=== PATIENT | female | born 1940 | race Caucasian/White ===

== ENCOUNTER 2016-07-03 12:18 | Outpatient (RCR) | payer MEDICARE, OTHER ==
[2016-06-18 15:24] LABS: BASOPHILS % (AUTO) 1 % (0-10); EOSINOPHILS # (AUTO) 0.2 10^3/uL (0.0-0.3); EOSINOPHILS % (AUTO) 2 % (0-10); LYMPHOCYTES # (AUTO) 1.7 X 10^3 (1.0-4.0); LYMPHOCYTES % (AUTO) 25 % (12-44); MEAN CORPUSCULAR HEMOGLOBIN 29 PG (25-34); MEAN CORPUSCULAR HGB CONC 32 G/DL (32-36); MEAN CORPUSCULAR VOLUME 89 FL (80-99); MEAN PLATELET VOLUME 8.9 FL (7.4-10.4); MONOCYTES # (AUTO) 0.4 X 10^3 (0.0-1.0); MONOCYTES % (AUTO) 6 % (0-12); NEUTROPHILS # (AUTO) 4.4 X 10^3 (1.8-7.8); NEUTROPHILS % (AUTO) 66 % (42-75); PLATELET COUNT 187 10^3/uL (130-400); RED BLOOD COUNT 4.62 10^6/uL (4.35-5.85); RED CELL DISTRIBUTION WIDTH 14.9 % (10.0-14.5); WHITE BLOOD COUNT 6.6 10^3/uL (4.3-11.0)
[2016-06-18 16:06] LABS: ALANINE AMINOTRANSFERASE 31 U/L (0-55); ALBUMIN 4.1 G/DL (3.2-4.5); ANION GAP 10 MMOL/L (5-14); ASPARTATE AMINO TRANSFERASE 35 U/L (5-34); BILIRUBIN,TOTAL 1.1 MG/DL (0.1-1.0); BLOOD UREA NITROGEN 12 MG/DL (7-18); BUN/CREATININE RATIO 16; CALCIUM 9.8 MG/DL (8.5-10.1); CARBON DIOXIDE 26 MMOL/L (21-32); CHLORIDE 103 MMOL/L (98-107); CREATININE SERUM 0.77 MG/DL (0.60-1.30); GFR ESTIMATED > 60; GLUCOSE 96 MG/DL (70-105); POTASSIUM 4.3 MMOL/L (3.6-5.0); SODIUM 139 MMOL/L (135-145); TOTAL PROTEIN 7.3 G/DL (6.4-8.2)
[~2016-07-03 12:18] MED LIST: ACYC400T21 PO; AMLO5TAB2 PO; ATOR40TA70 PO; CALC-817 PO; DPH25C; FENO145T; MELO-195 PO; MELO7.5T; MTP25TSR; MTP50T PO; MULT1CAP27 PO; QNPR20T; QUIN40TA PO; SERT50TA PO; SOLI5TAB4 PO; SULF1TAB38; TRM50TRX; [UNRECOGNIZED DRUG - OTHER]; lortab; vesicare; zoloft
== END 2016-09-16 | disposition home or self-care (01) ==
LOC: ONC 12:18
PROVIDERS: ATTEND Internal Medicine Hematology & Oncology
DX: C50.112 Malignant neoplasm of central portion of left female breast (principal); Z12.11 Encounter for screening for malignant neoplasm of colon; Z17.0 Estrogen receptor positive status [ER+]; Z79.811 Long term (current) use of aromatase inhibitors
CPT/HCPCS: 36415; 80053; 82274; 85025; 99213

== ENCOUNTER → 2016-12-18 | Outpatient (CLI) | payer MEDICARE, OTHER | LOC: CARD 11:57 | DX: R07.9 Chest pain, unspecified (principal) | CPT/HCPCS: 93306 ==

== ENCOUNTER → 2017-01-03 | Outpatient (CLI) | payer MEDICARE, OTHER ==
--- NOTE | 2017-01-03 16:29 | Diagnostic Imaging Report ---
INDICATION: Productive cough and dyspnea. PA and lateral views of the chest are obtained. Comparison is made to study of 05/19/2013. Overall heart size and pulmonary vascularity are within normal limits. There may be air trapping involving the upper lobes of both lungs. Chronic interstitial prominence in the left midlung is stable. Surgical clips are seen in the left axilla. There is no pneumothorax or evidence of consolidation. No significant pleural fluid is seen. There is diffuse thoracic spondylosis. IMPRESSION: Chronic findings without acute abnormality detected. Dictated by: Dictated on workstation # [id number]
== END ==
LOC: RAD 15:32
PROVIDERS: ATTEND Nurse Practitioner Family
DX: R05 Cough (principal)
CPT/HCPCS: 71020

== ENCOUNTER → 2017-01-14 | Outpatient (CLI) | payer MEDICARE, OTHER ==
[~2017-01-14] MED LIST changes: +RT-ALBUTEROL SULF 2.5 MG/3 ML PRE-MIX VIAL IH ONE
== END ==
LOC: RT 13:24
PROVIDERS: ATTEND Nurse Practitioner Family
DX: R05 Cough (principal); R06.02 Shortness of breath
CPT/HCPCS: 94060; 94640; 94726; 94729

== ENCOUNTER → 2017-01-18 | Outpatient (CLI) | payer MEDICARE, OTHER ==
[~2017-01-18] MED LIST changes: -RT-ALBUTEROL SULF 2.5 MG/3 ML PRE-MIX VIAL IH ONE
--- NOTE | 2017-01-22 13:39 | Diagnostic Imaging Report ---
INDICATION: Screening. The current study was also evaluated with a Computer Aided Detection (CAD) system. Comparison made to prior examination 01/16/2016; 05/02/2015; 08/31/2014; 02/18/2014. FINDINGS: There is moderate amount of residual fibroglandular tissue bilaterally. There is a large area of dystrophic calcification in the upper central left breast which is unchanged. There are a few other benign-type calcifications. There is no new dominant mass, spiculated lesion, or suspicious calcifications identified. There are some vascular calcifications. Skin, nipples, and axilla are unremarkable. IMPRESSION: Category 2 benign. ACR BI-RADS Category 2: Benign findings. Result letter will be mailed to the patient. Note: At least 10% of breast cancer is not imaged by mammography. Dictated by: Dictated on workstation # [id number]
== END ==
LOC: RAD 10:11
PROVIDERS: ATTEND Nurse Practitioner Adult Health
DX: Z12.31 Encounter for screening mammogram for malignant neoplasm of breast (principal); Z85.3 Personal history of malignant neoplasm of breast
CPT/HCPCS: 77067

== ENCOUNTER 2017-06-17 13:29 | Outpatient (RCR) | payer MEDICARE, OTHER ==
[2017-06-17 13:51] LABS: BASOPHILS % (AUTO) 0 % (0-10); EOSINOPHILS # (AUTO) 0.1 10^3/uL (0.0-0.3); EOSINOPHILS % (AUTO) 2 % (0-10); HEMATOCRIT 42 % (35-52); HEMOGLOBIN 13.8 G/DL (11.5-16.0); LYMPHOCYTES # (AUTO) 1.9 X 10^3 (1.0-4.0); LYMPHOCYTES % (AUTO) 27 % (12-44); MEAN CORPUSCULAR HEMOGLOBIN 30 PG (25-34); MEAN CORPUSCULAR HGB CONC 33 G/DL (32-36); MEAN CORPUSCULAR VOLUME 91 FL (80-99); MEAN PLATELET VOLUME 9.3 FL (7.4-10.4); MONOCYTES # (AUTO) 0.4 X 10^3 (0.0-1.0); MONOCYTES % (AUTO) 5 % (0-12); NEUTROPHILS # (AUTO) 4.5 X 10^3 (1.8-7.8); NEUTROPHILS % (AUTO) 66 % (42-75); PLATELET COUNT 145 10^3/uL (130-400); RED BLOOD COUNT 4.54 10^6/uL (4.35-5.85); RED CELL DISTRIBUTION WIDTH 14.3 % (10.0-14.5); WHITE BLOOD COUNT 6.9 10^3/uL (4.3-11.0)
[2017-06-17 14:14] LABS: ALANINE AMINOTRANSFERASE 37 U/L (0-55); ALBUMIN 3.9 GM/DL (3.2-4.5); ALKALINE PHOSPHATASE 96 U/L (40-136); BILIRUBIN,TOTAL 1.3 MG/DL (0.1-1.0); BUN/CREATININE RATIO 22; CARBON DIOXIDE 29 MMOL/L (21-32); CHLORIDE 103 MMOL/L (98-107); CREATININE SERUM 0.72 MG/DL (0.60-1.30); GFR ESTIMATED > 60; GLUCOSE 120 MG/DL (70-105); POTASSIUM 4.5 MMOL/L (3.6-5.0); SODIUM 141 MMOL/L (135-145); TOTAL PROTEIN 7.4 GM/DL (6.4-8.2)
[2017-06-17 15:12] LABS: ERYTHROCYTE SEDIMENTATION RATE 7 MM/HR (0-30)
== END 2017-09-15 | disposition home or self-care (01) ==
LOC: ONC 13:29
PROVIDERS: ATTEND Internal Medicine Hematology & Oncology
DX: Z08 Encounter for follow-up examination after completed treatment for malignant neoplasm (principal); Z85.3 Personal history of malignant neoplasm of breast; M79.1 Myalgia; I10 Essential (primary) hypertension; E78.00 Pure hypercholesterolemia, unspecified; Z79.899 Other long term (current) drug therapy
CPT/HCPCS: 36415; 80053; 85025; 85652; 86141; 99213

== ENCOUNTER → 2017-11-25 | Outpatient (CLI) | payer MEDICARE, OTHER ==
--- NOTE | 2017-11-25 16:08 | Diagnostic Imaging Report ---
INDICATION: Pneumonia. COMPARISON: 01/03/2017. FINDINGS: Two views of the chest are obtained. Heart size is normal. The pulmonary vessels appear unremarkable. There is no pneumothorax, mediastinal widening, or pleural fluid. Some calcific scarring in the left mid lung is unchanged. The lungs are otherwise clear. There are degenerative changes in the spine. IMPRESSION: No radiographic evidence of an acute cardiopulmonary abnormality. No interval change from the prior study. Dictated by: Dictated on workstation # [id number]
== END ==
LOC: RAD 14:50
PROVIDERS: ATTEND Nurse Practitioner Family
DX: J18.9 Pneumonia, unspecified organism (principal)
CPT/HCPCS: 71046

== ENCOUNTER → 2018-01-27 | Outpatient (CLI) | payer MEDICARE, OTHER ==
--- NOTE | 2018-01-27 18:15 | Diagnostic Imaging Report ---
Indication: Breast carcinoma. Patient reports her physician feeling some thickening in the left breast. Patient denies any symptoms. Comparison is made with prior exam from 01/18/2017 and 01/16/2016. 2D and 3D bilateral diagnostic mammography was performed with CAD. FINDINGS: Scattered fibroglandular densities are identified bilaterally. Lumpectomy changes in the upper left breast are again noted. Large calcified mass in the upper left breast appears stable. No new mass is seen. No malignant appearing microcalcifications are identified. The axillae are unremarkable. IMPRESSION: BI-RADS category 2. Stable bilateral mammograms. No mammographic features suspicious for malignancy are identified. ACR BI-RADS Category 2: Benign findings. Result letter will be mailed to the patient. Note: At least 10% of breast cancer is not imaged by mammography. Dictated by: Dictated on workstation # [id number]
== END ==
LOC: RAD 10:25
PROVIDERS: ATTEND Nurse Practitioner Adult Health
DX: C50.112 Malignant neoplasm of central portion of left female breast (principal); N64.59 Other signs and symptoms in breast
CPT/HCPCS: 77066

== ENCOUNTER → 2018-07-15 | Outpatient (CLI) | payer MEDICARE, OTHER ==
[2018-07-15 14:38] LABS: BASOPHILS % (AUTO) 0 % (0-10); EOSINOPHILS # (AUTO) 0.2 10^3/uL (0.0-0.3); EOSINOPHILS % (AUTO) 3 % (0-10); HEMATOCRIT 41 % (35-52); HEMOGLOBIN 13.8 G/DL (11.5-16.0); LYMPHOCYTES # (AUTO) 1.4 X 10^3 (1.0-4.0); LYMPHOCYTES % (AUTO) 25 % (12-44); MEAN CORPUSCULAR HEMOGLOBIN 31 PG (25-34); MEAN CORPUSCULAR HGB CONC 33 G/DL (32-36); MEAN CORPUSCULAR VOLUME 93 FL (80-99); MEAN PLATELET VOLUME 9.3 FL (7.4-10.4); MONOCYTES # (AUTO) 0.3 X 10^3 (0.0-1.0); MONOCYTES % (AUTO) 6 % (0-12); NEUTROPHILS # (AUTO) 3.7 X 10^3 (1.8-7.8); NEUTROPHILS % (AUTO) 66 % (42-75); PLATELET COUNT 146 10^3/uL (130-400); RED CELL DISTRIBUTION WIDTH 14.8 % (10.0-14.5); WHITE BLOOD COUNT 5.7 10^3/uL (4.3-11.0)
[2018-07-15 14:59] LABS: BUN/CREATININE RATIO 18; CALCIUM 9.8 MG/DL (8.5-10.1); CARBON DIOXIDE 25 MMOL/L (21-32); CHLORIDE 104 MMOL/L (98-107); GFR ESTIMATED > 60; GLUCOSE 137 MG/DL (70-105); POTASSIUM 4.2 MMOL/L (3.6-5.0); SODIUM 138 MMOL/L (135-145)
[2018-07-15 15:00] LABS: ALANINE AMINOTRANSFERASE 35 U/L (0-55); ALBUMIN 4.2 GM/DL (3.2-4.5); ALKALINE PHOSPHATASE 103 U/L (40-136); BILIRUBIN,TOTAL 1.5 MG/DL (0.1-1.0); TOTAL PROTEIN 7.3 GM/DL (6.4-8.2)
== END ==
LOC: EDSTATUS 09-16 13:18 → ONC 14:21
PROVIDERS: ATTEND Internal Medicine Hematology & Oncology
DX: Z08 Encounter for follow-up examination after completed treatment for malignant neoplasm (principal); Z85.3 Personal history of malignant neoplasm of breast; I10 Essential (primary) hypertension; E78.00 Pure hypercholesterolemia, unspecified; M79.10 Myalgia, unspecified site; Z79.899 Other long term (current) drug therapy
CPT/HCPCS: 36415; 80053; 83735; 85025; 99213

== ENCOUNTER → 2018-11-14 | Outpatient (CLI) | payer MEDICARE, OTHER ==
[~2018-11-14] MED LIST changes: +GADOBUTROL 10 MMOL/10 ML (GADAVIST) VIAL IV ONE
--- NOTE | 2018-11-14 15:58 | Diagnostic Imaging Report ---
MRI brain with and without contrast Technique: Multiplanar, multisequence MRI of the brain was performed with and without contrast. Indication: Memory loss. Comparison: None available. Findings: The diffusion series demonstrates no restriction to suggest acute ischemia. There is no MR evidence of acute intracranial hemorrhage. There is no evidence of intracranial mass effect or shift. Age-appropriate global cerebral volume loss is demonstrated. There are mild background chronic microvascular ischemic changes demonstrated within the subcortical and periventricular white matter. Rios and white matter signal characteristics are otherwise unremarkable. There is no abnormal extra-axial fluid collection. The ventricles are appropriate in size and configuration. The basilar cisterns are patent. Pituitary gland and pineal region appear normal. There is normal alignment of the craniocervical junction. No acute posterior fossa abnormality is demonstrated. There is no evidence of pathologic intracranial enhancement. The mastoids are clear. The paranasal sinuses are clear. The orbital contents are unremarkable. Expected arterial and dural venous sinus flow voids appear preserved. Impression: 1. No MR evidence of an acute intracranial abnormality. There is no evidence of acute ischemia, hemorrhage, intracranial mass effect, hydrocephalus, or pathologic intracranial enhancement. 2. Age-appropriate global cerebral volume loss. Mild background chronic microvascular ischemic changes are demonstrated throughout the white matter. Dictated by: Dictated on workstation # [id number]
== END ==
LOC: RAD 14:43
PROVIDERS: ATTEND Nurse Practitioner Family
DX: I67.82 Cerebral ischemia (principal); R41.3 Other amnesia
CPT/HCPCS: 70553

== ENCOUNTER 2019-05-05 07:12 | Emergency (ER) | payer MEDICARE, OTHER ==
[~2019-05-05] VITALS: Ht 164.4 cm; Wt 104.0 kg
[~2019-05-05 07:12] MED LIST changes: -GADOBUTROL 10 MMOL/10 ML (GADAVIST) VIAL IV ONE
[2019-05-05] MEDS ORDERED: LACTATED RINGERS 1,000 ML IV ONE ×2 (07:20→08:20)
[2019-05-05] MEDS ORDERED: ONDANSETRON 4 MG/2 ML (SDV) Z0FRAN IVP ONE (07:30)
[2019-05-05] MEDS ORDERED: DIPHENOXYLATE/ATROPINE 2.5MG/0.025MG (LOMOTIL) TAB PO ONE (07:30)
[2019-05-05 07:39] LABS: BASOPHILS % (AUTO) 0 % (0-10); EOSINOPHILS # (AUTO) 0.1 10^3/uL (0.0-0.3); EOSINOPHILS % (AUTO) 1 % (0-10); HEMATOCRIT 44 % (35-52); HEMOGLOBIN 14.4 G/DL (11.5-16.0); LYMPHOCYTES # (AUTO) 0.3 X 10^3 (1.0-4.0); LYMPHOCYTES % (AUTO) 5 % (12-44); MEAN CORPUSCULAR HEMOGLOBIN 29 PG (25-34); MEAN CORPUSCULAR HGB CONC 33 G/DL (32-36); MEAN CORPUSCULAR VOLUME 89 FL (80-99); MEAN PLATELET VOLUME 9.8 FL (7.4-10.4); MONOCYTES # (AUTO) 0.3 X 10^3 (0.0-1.0); MONOCYTES % (AUTO) 5 % (0-12); NEUTROPHILS # (AUTO) 5.8 X 10^3 (1.8-7.8); NEUTROPHILS % (AUTO) 89 % (42-75); PLATELET COUNT 121 10^3/uL (130-400); WHITE BLOOD COUNT 6.5 10^3/uL (4.3-11.0)
[2019-05-05 07:54] LABS: ALANINE AMINOTRANSFERASE 21 U/L (0-55); ALBUMIN 4.2 GM/DL (3.2-4.5); ALKALINE PHOSPHATASE 118 U/L (40-136); BILIRUBIN,TOTAL 1.7 MG/DL (0.1-1.0); BUN/CREATININE RATIO 14; CALCIUM 9.5 MG/DL (8.5-10.1); CARBON DIOXIDE 17 MMOL/L (21-32); CHLORIDE 106 MMOL/L (98-107); CREATINE KINASE 31 U/L (29-168); CREATININE SERUM 0.76 MG/DL (0.60-1.30); GFR ESTIMATED > 60; GLUCOSE 153 MG/DL (70-105); MAGNESIUM 1.7 MG/DL (1.6-2.4); POTASSIUM 4.3 MMOL/L (3.6-5.0); SODIUM 136 MMOL/L (135-145); TOTAL PROTEIN 7.4 GM/DL (6.4-8.2)
[2019-05-05 07:59] LABS: BAND NEUTROPHILS 17 %; BASOPHILS % (MANUAL) 0 %; EOSINOPHILS % (MANUAL) 0 %; LYMPHOCYTES % (MANUAL) 5 %; MONOCYTES % (MANUAL) 3 %; NEUTROPHILS % (MANUAL) 75 %; RBC MORPH NORMAL
[2019-05-05 08:01] LABS: BILIRUBIN,URINE NEGATIVE (NEGATIVE); CLARITY,URINE CLEAR; COLOR,URINE YELLOW; GLUCOSE, URINE (UA) NEGATIVE (NEGATIVE); KETONES,URINE NEGATIVE (NEGATIVE); LEUKOCYTE ESTERASE ,URINE TRACE (NEGATIVE); NITRITE,URINE NEGATIVE (NEGATIVE); PH,URINE 5.5 (5-9); PROTEIN,URINE TRACE (NEGATIVE)
[2019-05-05 08:10] LABS: BACTERIA,URINE FEW /HPF; RBC,URINE RARE /HPF
[2019-05-05 08:15] LABS: FREE T4 (FREE THYROXINE) 0.94 NG/DL (0.70-1.48)
[2019-05-05] MEDS ORDERED: KETOROLAC 30 MG/ML VIAL IVP ONE (08:30)
[2019-05-05] MEDS ORDERED: ONDA4TAB11 SL (09:40)
--- NOTE | 2019-05-05 09:43 | ED GI ---
General Chief Complaint: Abdominal/GI Problems Stated Complaint: D/N FEVER Nursing Triage Note: TO ED PER EMS FROM HOME WITH ONSET OF DIARRHEA LAST NIGHT AND BODY ACHES Sepsis Screen: No Definite Risk Source of Information: Patient Exam Limitations: No Limitations History of Present Illness Date Seen by Provider: May 05, 2019 Time Seen by Provider: 07:15 Initial Comments This 79-year-old woman presents to the emergency room with complaints of fever, diarrhea, and generalized body aches since last night. Pain is rated as 7/10. She had Advil last night. He had vomiting last night but none today. She is afebrile at present. Dr. Gordon is her primary care provider. Allergies and Home Medications Allergies Coded Allergies: Cortisone (Verified Allergy, Unknown, 01/10/07) Gramicidin D (Verified Allergy, Unknown, NEOSPORIN MAKES HER CHEEK SWELL, 01/13/07) Neomycin (Verified Allergy, Unknown, NEOSPORIN MAKES HER CHEEK SWELL, 01/13/07) Penicillins (Verified Allergy, Unknown, rash, 01/10/07) bacitracin (Verified Allergy, Unknown, NEOSPORIN MAKES HER CHEEK SWELL, 01/13/07) polymyxin B (Verified Allergy, Unknown, NEOSPORIN MAKES HER CHEEK SWELL, 01/13/07) Home Medications Acyclovir 400 Mg Tablet, 400 MG PO DAILY, (Reported) Amlodipine Besylate 5 Mg Tablet, 5 MG PO DAILY, (Reported) Atorvastatin Calcium 40 Mg Tablet, 40 MG PO DAILY, (Reported) Calcium Carb & Cit/Vitamin D3 1 Each Tablet.er, 1 EACH PO DAILY, (Reported) Meloxicam 15 Mg Tablet, 15 MG PO DAILY, (Reported) Metoprolol Tartrate 50 Mg Tablet, 1 EACH PO BID, (Reported) Multivitamins 1 Each Capsule, 1 EACH PO DAILY, (Reported) Ondansetron 4 Mg Tab.rapdis, 4 MG SL Q4H Prescribed by: MARQUEZ HARTLEY on 05/05/19 0940 Quinapril Hcl 40 Mg Tablet, 40 MG PO DAILY, (Reported) Sertraline Hcl 50 Mg Tablet, 50 MG PO DAILY, (Reported) Solifenacin Succinate 5 Mg Tablet, 5 MG PO DAILY, (Reported) Patient Home Medication List Home Medication List Reviewed: Yes Review of Systems Review of Systems Constitutional: see HPI EENTM: No Symptoms Reported Respiratory: No Symptoms Reported Cardiovascular: No Symptoms Reported Gastrointestinal: See HPI Genitourinary: No Symptoms Reported Musculoskeletal: see HPI Skin: no symptoms reported Psychiatric/Neurological: No Symptoms Reported Endocrine: No Symptoms Reported Hematologic/Lymphatic: No Symptoms Reported Past [id number]-Cfxjfr-Thcisw Hx Past Med/Social Hx: Reviewed and Corrections made Patient Social History Alcohol Use: Denies Use Recreational Drug Use: No Smoking Status: Never a Smoker Recent Foreign Travel: No Contact w/Someone Who Travel: No Recent Infectious Disease Expo: No Recent Hopitalizations: Yes (HAD AZYCUS VEIN REMOVED DUE TO ANEURYSM) Immunizations Up To Date Date of Pneumonia Vaccine: Feb 17, 2007 Past Medical History Surgeries: Yes (APPY, AZYCUS VEIN, CARPAL TUNNEL, LUMPECTOMY) Orthopedic Respiratory: No Cardiac: Yes (HAS HTN) Hypertension Neurological: Yes Dementia, Neuropathy Reproductive Disorders: No Genitourinary: Yes (Incontinence) Gastrointestinal: No Musculoskeletal: No Endocrine: Yes Hypothyroidsim Cancer: No Psychosocial: No Blood Disorders: No Physical Exam Vital Signs Vital Signs - First Documented 05/05/19 07:12 Temp 37.2 Pulse 74 Resp 18 B/P (MAP) 159/74 (102) Pulse Ox 95 Capillary Refill : Less Than 3 Seconds Height/Weight/BMI Height: 10'6.00" Weight: 249lbs. 0.0oz. 112.107111oc; 38.00 BMI Method: General Appearance: WD/WN, no apparent distress HEENT: normal ENT inspection, pharynx normal (Oropharynx) Neck: normal inspection Respiratory: lungs clear, normal breath sounds, no respiratory distress, no a ccessory muscle use Cardiovascular: regular rate, rhythm, no edema, no murmur Gastrointestinal: normal bowel sounds, non tender, soft Extremities: normal inspection, no pedal edema Neurologic/Psychiatric: personal security specialist II-XII nml as tested, no motor/sensory deficits, alert, normal mood/affect, oriented x 3 Skin: normal color, warm/dry Progress/Results/Core Measures Results/Orders Lab Results Laboratory Tests Test 05/05/19 07:26 05/05/19 07:52 Range/Units White Blood Count 6.5 4.3-11.0 10^3/uL Red Blood Count 4.90 4.35-5.85 10^6/uL Hemoglobin 14.4 11.5-16.0 G/DL Hematocrit 44 35-52 % Mean Corpuscular Volume 89 80-99 FL Mean Corpuscular Hemoglobin 29 25-34 PG Mean Corpuscular Hemoglobin Concent 33 32-36 G/DL Red Cell Distribution Width 15.0 H 10.0-14.5 % Platelet Count 121 L 130-400 10^3/uL Mean Platelet Volume 9.8 7.4-10.4 FL Neutrophils (%) (Auto) 89 H 42-75 % Lymphocytes (%) (Auto) 5 L 12-44 % Monocytes (%) (Auto) 5 0-12 % Eosinophils (%) (Auto) 1 0-10 % Basophils (%) (Auto) 0 0-10 % Neutrophils # (Auto) 5.8 1.8-7.8 X 10^3 Lymphocytes # (Auto) 0.3 L 1.0-4.0 X 10^3 Monocytes # (Auto) 0.3 0.0-1.0 X 10^3 Eosinophils # (Auto) 0.1 0.0-0.3 10^3/uL Basophils # (Auto) 0.0 0.0-0.1 10^3/uL Neutrophils % (Manual) 75 % Lymphocytes % (Manual) 5 % Monocytes % (Manual) 3 % Eosinophils % (Manual) 0 % Basophils % (Manual) 0 % Band Neutrophils 17 % Blood Morphology Comment NORMAL Sodium Level 136 135-145 MMOL/L Potassium Level 4.3 3.6-5.0 MMOL/L Chloride Level 106 98-107 MMOL/L Carbon Dioxide Level 17 L 21-32 MMOL/L Anion Gap 13 5-14 MMOL/L Blood Urea Nitrogen 11 7-18 MG/DL Creatinine 0.76 0.60-1.30 MG/DL Estimat Glomerular Filtration Rate > 60 BUN/Creatinine Ratio 14 Glucose Level 153 H 70-105 MG/DL Calcium Level 9.5 8.5-10.1 MG/DL Corrected Calcium 9.3 8.5-10.1 MG/DL Magnesium Level 1.7 1.6-2.4 MG/DL Total Bilirubin 1.7 H 0.1-1.0 MG/DL Aspartate Amino Transf (AST/SGOT) 21 5-34 U/L Alanine Aminotransferase (ALT/SGPT) 21 0-55 U/L Alkaline Phosphatase 118 40-136 U/L Total Creatine Kinase 31 29-168 U/L Total Protein 7.4 6.4-8.2 GM/DL Albumin 4.2 3.2-4.5 GM/DL Thyroid Stimulating Hormone (TSH) 1.24 0.35-4.94 UIU/ML Free Thyroxine 0.94 0.70-1.48 NG/DL Urine Color YELLOW Urine Clarity CLEAR Urine pH 5.5 5-9 Urine Specific [place] >=1.030 1.016-1.022 Urine Protein TRACE NEGATIVE Urine Glucose (UA) NEGATIVE NEGATIVE Urine Ketones NEGATIVE NEGATIVE Urine Nitrite NEGATIVE NEGATIVE Urine Bilirubin NEGATIVE NEGATIVE Urine Urobilinogen 0.2 < = 1.0 MG/DL Urine Leukocyte Esterase TRACE NEGATIVE Urine RBC (Auto) TRACE-I NEGATIVE Urine RBC RARE /HPF Urine WBC 5-10 H /HPF Urine Squamous Epithelial Cells 5-10 /HPF Urine Crystals NONE /LPF Urine Bacteria FEW H /HPF Urine Casts NONE /LPF Urine Mucus SMALL H /LPF Urine Culture Indicated YES Micro Results Microbiology 05/05/19 Urine Culture - Final, Complete 3 or more isolates My Orders Orders - MARQUEZ MCCARTHY MD Cbc With Automated Diff (05/05/19 07:20) Comprehensive Metabolic Panel (05/05/19 07:20) Creatine Kinase (05/05/19 07:20) Magnesium (05/05/19 07:20) Thyroid Stimulating Hormone (05/05/19 07:20) Ua Culture If Indicated (05/05/19 07:20) Ed Iv/Invasive Line Start (05/05/19 07:20) Lactated Ringers (Lr 1000 Ml Iv Solution (05/05/19 07:20) Ondansetron Injection (Zofran Injectio (05/05/19 07:30) Diphenoxylate/Atropine Tablet (Lomotil T (05/05/19 07:30) Free T4 (Free Thyroxine) (05/05/19 07:20) Manual Differential (05/05/19 07:26) Urine Culture (05/05/19 07:52) Ketorolac Injection (Toradol Injection) (05/05/19 08:30) Lactated Ringers (Lr 1000 Ml Iv Solution (05/05/19 08:20) Medications Given in ED Vital Signs/I&O 12/17/19 12/17/19 07:12 10:02 Temp 37.2 Pulse 74 71 Resp 18 18 B/P (MAP) 159/74 (102) 135/84 Pulse Ox 95 95 Blood Pressure Mean: 102 Progress Progress Note : Progress Note Labs were unremarkable. Patient received a liter of LR and Toradol 15 mg IV. She felt markedly improved. She did have 2 episodes of diarrhea while in the emergency room. After these therapies patient was requesting discharge home. Zofran was prescribed and she was dismissed. There were subtle findings in her urinalysis including a small amount of WBC and bacteria. These are likely to be contaminants given the diarrhea and the presence of squamous cells in the sample. Culture is being performed. Departure Impression Primary Impression: Nausea vomiting and diarrhea Additional Impression: Myalgia Disposition: 01 HOME, SELF-CARE Condition: Improved Departure-Patient Inst. Decision time for Depature: 09:20 Referrals: MADDY GORDON MD (PCP/Family) Primary Care Physician Patient Instructions: Diarrhea in Adolescents and Adults, Nausea and Vomiting, Adult (DC) Add. Discharge Instructions: Drink plenty of clear liquids. Stick to a clear liquid diet until this evening. Then you may gradually advance your diet with small quantities of bland food such as crackers, white rice, bananas, etc. Use Zofran (ondansetron) as prescribed for nausea and vomiting. Avoid milk products or fatty or greasy foods for at least 48 hours after symptoms have completely resolved. You may use Tylenol (acetaminophen) up to 1000 mg every 6 hours as needed for pain or fever. Add ibuprofen up to 400 mg every 6 hours as needed for additional pain or fever relief. You may use Imodium sparingly for treatment of diarrhea. Return to the emergency room if you have any significant problems or concerns. All discharge instructions reviewed with patient and/or family. Voiced understanding. Scripts Ondansetron (Ondansetron Odt) 4 Mg Tab.rapdis 4 MG SL Q4H, #10 TAB Prov: MARQUEZ MCCARTHY MD 05/05/19 Copy Copies To 1: MADDY GORDON MD, JOSHUA T MD May 05, 2019 09:43
--- NOTE | 2019-05-05 09:46 | NUR ---
PATIENT FEELING MUCH BETTER READY TO GO HOME DECLINED 2ND LITER.
[2019-05-05 10:02] VITALS: BP 135/84
== END 2019-05-05 10:01 | disposition home or self-care (01) ==
LOC: EDUNIT# 07:12 → ER 07:15
DX: R19.7 Diarrhea, unspecified (principal); R11.2 Nausea with vomiting, unspecified; M79.18 Myalgia, other site; I10 Essential (primary) hypertension; F03.90 Unspecified dementia, unspecified severity, without behavioral disturbance, psychotic disturbance, mood disturbance, and anxiety; G62.9 Polyneuropathy, unspecified; E03.9 Hypothyroidism, unspecified; Z90.49 Acquired absence of other specified parts of digestive tract; Z88.0 Allergy status to penicillin; Z88.1 Allergy status to other antibiotic agents; Z88.8 Allergy status to other drugs, medicaments and biological substances
CPT/HCPCS: 36415; 80053; 81000; 82550; 83735; 84439; 84443; 85007; 85027; 87088

== ENCOUNTER → 2019-06-19 | Outpatient (CLI) | payer MEDICARE, OTHER ==
[~2019-06-19] MED LIST changes: +ONDA4TAB11 SL
--- NOTE | 2019-06-19 16:17 | Diagnostic Imaging Report ---
INDICATION: Left breast carcinoma. COMPARISON: Correlation is made with prior mammograms from 01/27/2018 and 01/18/2017. TECHNIQUE: 2-D and 3-D bilateral diagnostic mammography was performed. The current study was also evaluated with a Computer Aided Detection (CAD) system. 3-D tomosynthesis was also performed and reviewed. FINDINGS: Scattered fibroglandular densities are identified bilaterally. There are post-lumpectomy changes in the upper left breast. A large calcified mass at the lumpectomy site is stable. No new mass or malignant-appearing microcalcifications are seen. There are surgical clips in the left axilla. IMPRESSION: No mammographic features suspicious for malignancy are identified. ACR BI-RADS Category 2: Benign findings. Result letter will be mailed to the patient. Note: At least 10% of breast cancer is not imaged by mammography. Dictated by: Dictated on workstation # [id number]
== END ==
LOC: RAD 14:03
PROVIDERS: ATTEND Nurse Practitioner Adult Health
DX: N63.20 Unspecified lump in the left breast, unspecified quadrant (principal); C50.112 Malignant neoplasm of central portion of left female breast
CPT/HCPCS: 77066

== ENCOUNTER → 2019-07-14 | Outpatient (CLI) | payer MEDICARE, OTHER ==
[2019-07-14 13:36] LABS: BASOPHILS % (AUTO) 0 % (0-10); EOSINOPHILS # (AUTO) 0.2 10^3/uL (0.0-0.3); EOSINOPHILS % (AUTO) 3 % (0-10); HEMATOCRIT 44 % (35-52); HEMOGLOBIN 14.1 G/DL (11.5-16.0); LYMPHOCYTES # (AUTO) 1.5 X 10^3 (1.0-4.0); LYMPHOCYTES % (AUTO) 25 % (12-44); MEAN CORPUSCULAR HEMOGLOBIN 29 PG (25-34); MEAN CORPUSCULAR HGB CONC 32 G/DL (32-36); MEAN CORPUSCULAR VOLUME 91 FL (80-99); MEAN PLATELET VOLUME 9.2 FL (7.4-10.4); MONOCYTES # (AUTO) 0.3 X 10^3 (0.0-1.0); MONOCYTES % (AUTO) 5 % (0-12); NEUTROPHILS % (AUTO) 67 % (42-75); PLATELET COUNT 136 10^3/uL (130-400); RED CELL DISTRIBUTION WIDTH 15.4 % (10.0-14.5)
[2019-07-14 13:55] LABS: ALANINE AMINOTRANSFERASE 25 U/L (0-55); ALBUMIN 4.1 GM/DL (3.2-4.5); ALKALINE PHOSPHATASE 117 U/L (40-136); BUN/CREATININE RATIO 16; CALCIUM 9.7 MG/DL (8.5-10.1); CARBON DIOXIDE 25 MMOL/L (21-32); CHLORIDE 105 MMOL/L (98-107); CREATININE SERUM 0.73 MG/DL (0.60-1.30); GFR ESTIMATED > 60; GLUCOSE 106 MG/DL (70-105); POTASSIUM 4.4 MMOL/L (3.6-5.0); SODIUM 139 MMOL/L (135-145); TOTAL PROTEIN 7.4 GM/DL (6.4-8.2)
== END ==
LOC: ONC 13:27
PROVIDERS: ATTEND Internal Medicine Hematology & Oncology
DX: N64.59 Other signs and symptoms in breast (principal); R19.7 Diarrhea, unspecified; R92.1 Mammographic calcification found on diagnostic imaging of breast; Z85.3 Personal history of malignant neoplasm of breast
CPT/HCPCS: 80053; 85025; 99213

== ENCOUNTER → 2020-06-20 | Outpatient (CLI) | payer MEDICARE, OTHER ==
--- NOTE | 2020-06-20 13:21 | Diagnostic Imaging Report ---
INDICATION: Left breast cancer, followup. COMPARISON: Correlation is made with the prior mammograms of 06/19/2019 and 01/27/2018. TECHNIQUE: 2D and 3D bilateral diagnostic mammography was performed with CAD. FINDINGS: Scattered fibroglandular densities are identified bilaterally. There are post-therapeutic changes in the left breast. There are surgical clips in the left axilla. A large calcified mass in the upper central left breast is stable. No spiculated mass or malignant-appearing microcalcifications are seen. The right axilla is unremarkable. IMPRESSION: Stable bilateral mammograms with no mammographic features suspicious for malignancy. ACR BI-RADS Category 2: Benign findings. Result letter will be mailed to the patient. Note: At least 10% of breast cancer is not imaged by mammography. Dictated by: Dictated on workstation # [id number]
== END ==
LOC: RAD 12:48
PROVIDERS: ATTEND Nurse Practitioner Adult Health
DX: R92.1 Mammographic calcification found on diagnostic imaging of breast (principal); Z85.3 Personal history of malignant neoplasm of breast
CPT/HCPCS: 77066; G0279; 77062

== ENCOUNTER → 2020-07-25 | Outpatient (CLI) | payer MEDICARE, OTHER ==
[2020-07-25 11:19] LABS: BASOPHILS % (AUTO) 0 % (0-10); EOSINOPHILS # (AUTO) 0.3 10^3/uL (0.0-0.3); EOSINOPHILS % (AUTO) 3 % (0-10); HEMATOCRIT 40 % (35-52); HEMOGLOBIN 12.5 g/dL (11.5-16.0); LYMPHOCYTES # (AUTO) 1.1 10^3/uL (1.0-4.0); LYMPHOCYTES % (AUTO) 11 % (12-44); MEAN CORPUSCULAR HEMOGLOBIN 30 pg (25-34); MEAN CORPUSCULAR HGB CONC 31 g/dL (32-36); MEAN CORPUSCULAR VOLUME 96 fL (80-99); MEAN PLATELET VOLUME 9.1 fL (9.0-12.2); MONOCYTES # (AUTO) 0.4 10^3/uL (0.0-1.0); MONOCYTES % (AUTO) 4 % (0-12); NEUTROPHILS # (AUTO) 8.1 10^3/uL (1.8-7.8); NEUTROPHILS % (AUTO) 82 % (42-75); PLATELET COUNT 268 10^3/uL (130-400)
[2020-07-25 11:45] LABS: ALANINE AMINOTRANSFERASE 25 U/L (0-55); ALBUMIN 3.4 GM/DL (3.2-4.5); ALKALINE PHOSPHATASE 102 U/L (40-136); BILIRUBIN,TOTAL 0.6 MG/DL (0.1-1.0); BUN/CREATININE RATIO 11; CALCIUM 9.5 MG/DL (8.5-10.1); CARBON DIOXIDE 26 MMOL/L (21-32); CHLORIDE 106 MMOL/L (98-107); CREATININE SERUM 0.83 MG/DL (0.60-1.30); GFR ESTIMATED > 60; GLUCOSE 120 MG/DL (70-105); POTASSIUM 4.4 MMOL/L (3.6-5.0); SODIUM 140 MMOL/L (135-145); TOTAL PROTEIN 7.5 GM/DL (6.4-8.2)
== END ==
LOC: ONC 10:43
PROVIDERS: ATTEND Internal Medicine Hematology & Oncology
DX: C50.112 Malignant neoplasm of central portion of left female breast (principal); F03.90 Unspecified dementia, unspecified severity, without behavioral disturbance, psychotic disturbance, mood disturbance, and anxiety; I10 Essential (primary) hypertension; I25.10 Atherosclerotic heart disease of native coronary artery without angina pectoris; E78.00 Pure hypercholesterolemia, unspecified; R19.7 Diarrhea, unspecified; Z79.811 Long term (current) use of aromatase inhibitors; Z98.890 Other specified postprocedural states; Z90.12 Acquired absence of left breast and nipple; Z92.3 Personal history of irradiation
CPT/HCPCS: 80053; 85025; G0463; 99213

== ENCOUNTER 2021-03-09 09:56 | Outpatient (CLI) | payer MEDICARE, OTHER ==
[~2021-03-09] VITALS: Ht 167.7 cm; Wt 104.0 kg
[2021-03-09] MEDS ORDERED: ACETAMINOPHEN 500 MG TAB (TYLENOL) PO PRN (10:00)
[2021-03-09] MEDS ORDERED: diphenhydrAMINE 50 MG/ML INJ (BENADRYL) IV PRN (10:00)
[2021-03-09] MEDS ORDERED: CASIRIVIMAB/IMDEVIMAB 1,200 MG in NS (IVPB) 250 ML IV ONE (10:00)
[2021-03-09] MEDS ORDERED: ONDANSETRON 4 MG/2 ML (SDV) Z0FRAN IV PRN (10:00)
[2021-03-09] MEDS ORDERED: EPINEPHrine INJECTION 1 MG/ML AMP IM PRN (10:00)
[2021-03-09 10:08] VITALS: BP 131/52
[2021-03-09 11:16] VITALS: BP 114/54
== END 2021-03-09 11:30 | disposition home or self-care (01) ==
LOC: INFUSION 09:56
PROVIDERS: ATTEND Nurse Practitioner Family
DX: U07.1 COVID-19 (principal)

== ENCOUNTER 2021-04-03 07:38 | Outpatient (RCR) | payer MEDICARE, OTHER ==
[2021-03-27] MEDS: MEROPENEM 500 MG/SWFI 10 ML IV PUSH IV SCH ×4 (14:10→22:08)
[2021-03-27 14:21] VITALS: BP 110/58
[2021-03-27 22:06] VITALS: BP 123/55
[2021-03-28] MEDS: MEROPENEM 500 MG/SWFI 10 ML IV PUSH IV SCH ×6 (07:14→22:10)
[2021-03-28 07:30] VITALS: BP 113/67
[2021-03-28 15:28] VITALS: BP 113/67
[2021-03-28 22:20] VITALS: BP 110/60
[2021-03-29] MEDS: MEROPENEM 500 MG/SWFI 10 ML IV PUSH IV SCH ×2 (06:59)
[2021-03-29 07:05] VITALS: BP 0/0
[2021-03-29] MEDS: MEROPENEM 500 MG/NS 100 ML IVPB IV SCH ×4 (14:39→22:44)
[2021-03-29 14:50] VITALS: BP 102/51
[2021-03-29 22:49] VITALS: BP 110/56
[2021-03-30] MEDS: MEROPENEM 500 MG/NS 100 ML IVPB IV SCH ×6 (07:01→22:17)
[2021-03-30 07:20] VITALS: BP 113/55
[2021-03-30 14:59] VITALS: BP 113/55
[2021-03-30 22:44] VITALS: BP 116/88
[2021-03-31 07:00] VITALS: BP 147/58
[2021-03-31] MEDS: MEROPENEM 500 MG/NS 100 ML IVPB IV SCH ×6 (07:23→22:10)
[2021-03-31 14:35] VITALS: BP 147/58
[2021-03-31 22:10] VITALS: BP 141/61
[2021-04-01 07:30] VITALS: BP 131/70
[2021-04-01] MEDS: MEROPENEM 500 MG/NS 100 ML IVPB IV SCH ×6 (07:51→22:30)
[2021-04-01 14:50] VITALS: BP 126/61
[2021-04-01 22:25] VITALS: BP 167/67
[2021-04-02] MEDS: MEROPENEM 500 MG/NS 100 ML IVPB IV SCH ×6 (07:25→22:14)
[2021-04-02 07:45] VITALS: BP 122/75
[2021-04-02 15:12] VITALS: BP 127/61
[2021-04-02 22:17] VITALS: BP 162/70
[~2021-04-03] VITALS: Ht 167 cm; Wt 89.5 kg
[2021-04-03] MEDS: MEROPENEM 500 MG/NS 100 ML IVPB IV SCH ×2 (07:49)
[2021-04-03 08:05] VITALS: BP 143/65
== END 2021-04-03 08:05 | disposition home or self-care (01) ==
LOC: SDC 07:38
PROVIDERS: ATTEND Nurse Practitioner Family
DX: N39.0 Urinary tract infection, site not specified (principal)
CPT/HCPCS: 36410; 76937; 96365; 96374; C1751

== ENCOUNTER 2021-04-18 05:42 | Outpatient (CLI) | payer MEDICARE, OTHER ==
[~2021-04-18] VITALS: Ht 167.7 cm; Wt 89.4 kg
[2021-04-18] MEDS ORDERED: DONE5TAB30 PO (11:06)
== END 2021-04-18 11:29 | disposition home or self-care (01) ==
LOC: PREOP 05:42
PROVIDERS: ATTEND Internal Medicine
DX: Z01.818 Encounter for other preprocedural examination (principal)

== ENCOUNTER 2021-04-28 07:18 | Day surgery (SDC) | payer MEDICARE, OTHER ==
--- NOTE | 2021-04-19 06:47 | HISTORY AND PHYSICAL ---
DATE OF SERVICE: COLONOSCOPY HISTORY AND PHYSICAL HISTORY: The patient is a 80-year-old white female referred by Dr. Gordon for diagnostic colonoscopy. She reports at least a several year history what she reports is constipation, but describes that she has to keep her stool very soft. It is not typically hard, but she has to strain. She has noted change in stool caliber with this being much more narrow over the last six months. She denies bright red blood per rectum. She had one other colonoscopy done in [address] Prieto. Report was reviewed. She had no evidence for neoplasia with mild diverticular disease confined with sigmoid colon. She denies bright red blood per rectum, melena and is not aware of any family history for colon cancer. She denies any change in weights. PAST MEDICAL HISTORY: Significant for hypertension. She has had past lumbar and cervical surgeries, last being a cervical surgery in 2016. She reports that both of them work very well and she currently is back and leg pain free. She does report chronic urinary tract infection, but this has been getting worse and some small volume urinary incontinence with some urinary urgency. SOCIAL HISTORY: She is retired, no past smoking or significant alcohol consumption history. FAMILY HISTORY: She has a brother living with hypertension. Father reportedly of natural causes, had history of hypertension, arthritis and hyperlipidemia. Mother also had osteoporosis and arthritis, not sure what the cause of was. She has one brother living with hypertension. Not aware of any cancers that run in the family. REVIEW OF SYSTEMS: CONSTITUTIONAL: Denies night sweats, chills, fever, change in weight. GASTROINTESTINAL: As noted in the HPI. PULMONARY: Denies cough, wheezing or shortness of breath. CARDIOVASCULAR: Denies orthopnea, PND, pedal edema, syncope, or orthopnea. PHYSICAL EXAMINATION: GENERAL: Reveals a pleasant white female, did not appear to be in acute distress. VITAL SIGNS: Weight 202 pounds, blood pressure 130/72. HEENT: Unremarkable. CHEST: Clear. CARDIOVASCULAR: Reveals a regular rate and rhythm without significant murmur, S3 or S4. ABDOMEN: Soft, supple without mass, organomegaly or tenderness. EXTREMITIES: Reveal no cyanosis, clubbing or edema. ASSESSMENT AND PLAN: The patient is being set up for diagnostic colonoscopy. Prep instructions with the Suprep kit were given and questions were answered. Electronic medical record was reviewed. If no evidence for mechanical obstruction, mass, etc., is noted, would suspect anorectal dysfunction and we would consider referral for pelvic floor physical therapy. Further recommendations pending colonoscopy consult. I thank you for the referral of this pleasant lady. Job ID: [id number] DocumentID: [id number] Dictated Date: 04/05/2021 17:01:03 Tugboat Captain Date: 04/05/2021 17:23:36 Dictated By: NIHARIKA VANCE MD MTDD
[2021-04-28] VITALS (7 sets, daily range): BP systolic 93–149; BP diastolic 50–73
[~2021-04-28] VITALS: Ht 167.7 cm; Wt 89.4 kg
[~2021-04-28 07:18] MED LIST changes: +DONE5TAB30 PO
[2021-04-28] MEDS ORDERED: LACTATED RINGERS 1,000 ML IV ONE (07:23)
[2021-04-28] MEDS ORDERED: LACTATED RINGERS 1,000 ML IV STA (07:40)
[2021-04-28] MEDS ORDERED: LIDOCAINE JELLY 2% 6 ML SYRINGE MM PRN (07:45)
--- NOTE | 2021-04-28 07:59 | Pre-Op Note & Conscious Sedat ---
Pre-Operative Progress Note H&P Reviewed The H&P was reviewed, patient examined and no changes noted. Date H&P Reviewed: Apr 28, 2021 Time H&P Reviewed: 07:58 Conscious Sedation Pre-Proced ASA Score 2 For ASA 3 and 4: Consider anesthesia and medical clearance. Also, for patients with a history of failed moderate sedation consider anesthesia. Airway Lungs Heart ASA score ASA 1: a normal healthy patient ASA 2: a patient with a mild systemic disease (mid diabetes, controlled hypertension, obesity ASA 3: a patient with a severe systemic disease that limits activity (angina, COPD, prior Myocardial infarction) ASA 4: a patient with an incapacitating disease that is a constant threat to life (CHF, renal failure) ASA 5: a moribund patient not expected to survive 24 hrs. (ruptured aneurysm) ASA 6: a declared brain- patient whose organs are being harvested. For emergent operations, add the letter E after the classification Mallampati Classification Grade 2 Sedation Plan Analgesia, Amnesia, Plan communicated to team members, Discussed options with patient/fam, Discussed risks with patient/fam The patient is an appropriate candidate to undergo the planned procedure, sedation, and anesthesia. The patient immediately re-assessed prior to indication. NIHARIKA VANCE MD Apr 28, 2021 07:58
[2021-04-28] MEDS ORDERED: PROPOFOL INJECTION 50 ML IV ONE (08:01)
--- NOTE | 2021-04-28 09:37 | Anesthesia-General Post-Op ---
MAC Patient Condition Mental Status/LOC: Same as Preop Cardiovascular: Satisfactory Nausea/Vomiting: Absent Respiratory: Satisfactory Pain: Controlled Complications: Absent Post Op Complications Complications None Follow Up Care/Instructions Patient Instructions None needed. Anesthesiology Discharge Order Discharge Order Patient is doing well, no complaints, stable vital signs, no apparent adverse anesthesia problems. No complications reported per nursing. AKILA LEE CRNA Apr 28, 2021 09:37
--- NOTE | 2021-04-28 13:30 | OPERATIVE REPORT ---
DATE OF SERVICE: COLONOSCOPY SUMMARY INDICATION FOR THE PROCEDURE: Change in stool caliber with constipation. The patient was placed in the left lateral decubitus position. Prior to undergoing colonoscopy, digital rectal evaluation was performed. Considering this patient's age and the fact that she was sedated, anal sphincter tone was likely slightly increased in tone. No other abnormalities were noted on digital inspection of anal canal or distal rectal vault. The colonoscope was then inserted into the rectum and under direct visualization advanced to cecum. The cecum was identified by identification of the esophageal cecal strap. Photographic documentation was obtained. Careful inspection was made as colonoscope withdrawn. FINDINGS: No evidence for internal or external hemorrhoids. The rectum was unremarkable. Mild diverticular disease confined to the sigmoid colon was present without evidence for diverticulitis. There is no evidence for extrinsic compression. The descending colon, splenic flexure, transverse colon, hepatic flexure, ascending colon, and cecum were unremarkable. ASSESSMENT: Mild diverticular disease confined to the sigmoid colon was present with otherwise normal colonoscopy to cecum and no evidence to suggest extrinsic compression either. Considering today's findings, suspect pelvic floor dysfunction as the underlying cause of her change in stool caliber and having to strain to pass stool that is not particularly hard in her words. We would advocate referral for pelvic floor physical therapy and evaluation. Would advocate consideration referral to Virgie Chahal through [facility]. Job ID: [id number] DocumentID: [id number] Dictated Date: 04/28/2021 08:29:32 Museum Technician Date: 04/28/2021 13:30:16 Dictated By: NIHARIKA VANCE MD MTDD
== END 2021-04-28 09:35 | disposition home or self-care (01) ==
LOC: ENDO 07:18
PROVIDERS: ATTEND Internal Medicine
DX: K59.00 Constipation, unspecified (principal); K57.30 Diverticulosis of large intestine without perforation or abscess without bleeding; I10 Essential (primary) hypertension; G62.9 Polyneuropathy, unspecified; F03.90 Unspecified dementia, unspecified severity, without behavioral disturbance, psychotic disturbance, mood disturbance, and anxiety; Z79.899 Other long term (current) drug therapy; Z79.1 Long term (current) use of non-steroidal anti-inflammatories (NSAID)

== ENCOUNTER → 2021-06-29 | Outpatient (CLI) | payer MEDICARE, OTHER ==
--- NOTE | 2021-06-29 14:14 | Diagnostic Imaging Report ---
INDICATION: Routine screening. Comparison is made with prior mammogram 06/20/2020 and 06/19/2019. 2-D and 3-D bilateral screening mammography was performed with CAD. Scattered fibroglandular densities are identified bilaterally. Posttherapeutic changes on the left are again noted. The large calcified mass in the left breast appears stable. Additional scattered benign calcifications in both breasts are also noted. No new mass or malignant-appearing microcalcifications are seen. The axillae are unremarkable. IMPRESSION: No mammographic features suspicious for malignancy are identified. BI-RADS Category 2 ACR BI-RADS Category 2: Benign findings. Result letter will be mailed to the patient. Note: At least 10% of breast cancer is not imaged by mammography. Dictated by: Dictated on workstation # [id number]
== END ==
LOC: RAD 11:00
PROVIDERS: ATTEND Nurse Practitioner Adult Health
DX: Z12.31 Encounter for screening mammogram for malignant neoplasm of breast (principal); Z85.3 Personal history of malignant neoplasm of breast
CPT/HCPCS: 77063; 77067

== ENCOUNTER → 2021-09-29 | Outpatient (CLI) | payer MEDICARE, OTHER ==
[~2021-09-29] MED LIST changes: +GADOTERATE 0.5 MMOL/ML (CLARISCAN) 20 ML VIAL IV ONE
--- NOTE | 2021-09-29 16:34 | Diagnostic Imaging Report ---
MRI brain with and without contrast Technique: Multiplanar, multisequence MRI of the brain was performed with and without contrast. Indication: Optic stroke. Comparison: 11/14/2018. Findings: The diffusion series demonstrates no restriction to suggest acute ischemia. There is no MR evidence of acute intracranial hemorrhage. There is no evidence of intracranial mass effect or shift. Age-appropriate global cerebral volume loss is demonstrated. There are mild background chronic microvascular ischemic changes demonstrated within the subcortical and periventricular white matter. These appear unchanged from the previous examination. Rios and white matter signal characteristics are otherwise unremarkable. There is no abnormal extra-axial fluid collection. The ventricles are appropriate in size and configuration. The basilar cisterns are patent. Pituitary gland and pineal region appear normal. There is normal alignment of the craniocervical junction. No acute posterior fossa abnormality is demonstrated. There is no evidence of pathologic intracranial enhancement. The mastoids are clear. The paranasal sinuses are clear. The orbital contents are unremarkable. Prior ocular lens replacement noted. Expected arterial and dural venous sinus flow voids appear preserved. Impression: 1. No MR evidence of an acute intracranial abnormality. There is no evidence of acute ischemia, hemorrhage, intracranial mass effect, hydrocephalus, or pathologic intracranial enhancement. 2. Age-appropriate global cerebral volume loss. Stable mild microvascular ischemic changes throughout the white matter. Dictated by: Dictated on workstation # [id number]
== END ==
LOC: RAD 12:30
PROVIDERS: ATTEND Nurse Practitioner Family
DX: G31.1 Senile degeneration of brain, not elsewhere classified (principal); I67.82 Cerebral ischemia; I63.9 Cerebral infarction, unspecified
CPT/HCPCS: 70553

== ENCOUNTER → 2021-10-06 | Outpatient (CLI) | payer MEDICARE, OTHER ==
[~2021-10-06] MED LIST changes: -GADOTERATE 0.5 MMOL/ML (CLARISCAN) 20 ML VIAL IV ONE
--- NOTE | 2021-10-06 16:04 | Diagnostic Imaging Report ---
INDICATION: Ocular stroke. Carotid Doppler study performed in the routine fashion with color flow Doppler waveform analysis. Some plaquing is seen in the right internal carotid proximally. The left internal carotid with tortuous. Velocities and ratios however are within normal range with the ICA/CCA systolic velocity ratio of 0.86 on both sides. Both vertebrals show antegrade flow. Parameters based on the consensus panel Rios-Scale and Doppler ultrasound criteria published March 2003, Radiology, Volume 229. DOPPLER (peak systolic velocity M/S Right Left CCA .81 1.1 ICA Proximal .51 .56 ICA Mid .63 .62 ICA Distal .70 .92 RATIO .86 .86 ECA .86 1.1 VERT .60 .34 IMPRESSION: Mild plaquing and right proximal ICA and tortuosity left ICA. Normal velocities and ratios on both sides with no significant stenosis. Dictated by: Dictated on workstation # [id number]
== END ==
LOC: RAD 13:00
PROVIDERS: ATTEND Nurse Practitioner Family
DX: I65.21 Occlusion and stenosis of right carotid artery (principal); I77.1 Stricture of artery; H34.239 Retinal artery branch occlusion, unspecified eye
CPT/HCPCS: 93880

== ENCOUNTER → 2022-07-02 | Outpatient (CLI) | payer MEDICARE, OTHER ==
--- NOTE | 2022-07-02 13:09 | Diagnostic Imaging Report ---
INDICATION: Routine screening. COMPARISON: 06/29/2021 and 06/20/2020. TECHNIQUE: 2D and 3D bilateral screening mammography was performed with CAD. FINDINGS: Scattered fibroglandular densities are identified bilaterally. Post therapeutic changes in the right breast are again noted and appear stable. Bilateral calcifications are stable. No new mass or malignant-appearing microcalcifications are identified. The left axilla contains multiple surgical clips. The right axilla is unremarkable. IMPRESSION: No mammographic features suspicious for malignancy are identified. ACR BI-RADS Category 2: Benign findings. Result letter will be mailed to the patient. Note: At least 10% of breast cancer is not imaged by mammography. Dictated by: Dictated on workstation # [id number]
== END ==
LOC: RAD 11:07
PROVIDERS: ATTEND Nurse Practitioner Adult Health
DX: Z12.31 Encounter for screening mammogram for malignant neoplasm of breast (principal)
CPT/HCPCS: 77063; 77067

== ENCOUNTER 2022-08-24 09:30 | Observation (INO) | payer MEDICARE, OTHER ==
[~2022-08-24] VITALS: Ht 167 cm; Wt 90.0 kg
[2022-08-24] MEDS ORDERED: ASPIRIN 81 MG CHEW (CHILDREN'S ASA) PO ONE (09:45)
[2022-08-24 09:46] LABS: BASOPHILS % (AUTO) 1 % (0-10); EOSINOPHILS # (AUTO) 0.2 10^3/uL (0.0-0.3); EOSINOPHILS % (AUTO) 3 % (0-10); HEMATOCRIT 40 % (35-52); HEMOGLOBIN 13.3 g/dL (11.5-16.0); LYMPHOCYTES # (AUTO) 1.4 10^3/uL (1.0-4.0); LYMPHOCYTES % (AUTO) 22 % (12-44); MEAN CORPUSCULAR HEMOGLOBIN 31 pg (25-34); MEAN CORPUSCULAR HGB CONC 33 g/dL (32-36); MEAN CORPUSCULAR VOLUME 93 fL (80-99); MEAN PLATELET VOLUME 9.2 fL (9.0-12.2); MONOCYTES # (AUTO) 0.4 10^3/uL (0.0-1.0); MONOCYTES % (AUTO) 6 % (0-12); NEUTROPHILS # (AUTO) 4.6 10^3/uL (1.8-7.8); NEUTROPHILS % (AUTO) 69 % (42-75); PLATELET COUNT 178 10^3/uL (130-400); WHITE BLOOD COUNT 6.6 10^3/uL (4.3-11.0)
--- NOTE | 2022-08-24 09:52 | ED Chest Pain ---
General Chief Complaint: Cardiac/General Problems Stated Complaint: TIGHTNESS IN CHEST Source: patient, family (daughter) Exam Limitations: no limitations History of Present Illness Date Seen by Provider: Aug 24, 2022 Time Seen by Provider: 09:39 Initial Comments 82-year-old female presents to the emergency department today for chest t ightness. Symptoms off and on for last 4 weeks. She saw her doctor and ask if she could get an EKG. She states she was told "you have to see a armored transport service manager to get an EKG." She does schedule an appointment with cardiology at [facility] however this is not until the . She states her symptoms worsened last night. Overall her symptoms include tightness in her mid chest that at some point is severe. She states it lasted most of the night last night but subsided slightly upon her arrival. Symptoms are mostly with exertion and do seem to be relieved somewhat by rest. Last night however her symptoms became severe. No nausea vomiting or diaphoresis or other associated symptoms. No radiation. No history of cardiac disease. She does have a history of chronic Klebsiella pneumonia and has been on multiple doses of antibiotics for this All other systems reviewed and negative except documented per HPI. Voice recognition software was used to help create this chart Allergies and Home Medications Allergies Coded Allergies: Penicillins (Verified Allergy, Unknown, rash, 08/24/22) bacitracin (Verified Allergy, Unknown, NEOSPORIN MAKES HER CHEEK SWELL, 08/24/22) cortisone (Verified Allergy, Unknown, 08/24/22) gramicidin D (Verified Allergy, Unknown, NEOSPORIN MAKES HER CHEEK SWELL, 08/24/22) neomycin (Verified Allergy, Unknown, NEOSPORIN MAKES HER CHEEK SWELL, 08/24/22) polymyxin B (Verified Allergy, Unknown, NEOSPORIN MAKES HER CHEEK SWELL, 08/24/22) Patient Home Medication List Home Medication List Reviewed: Yes Donepezil HCl (Donepezil HCl) 10 Mg Tablet, 10 MG PO DAILY, (Reported) Entered as Reported by: ESTER GREEN on 08/24/22 1402 Last Action: Continued Ergocalciferol (Vitamin D2) (Vitamin D2) 1,250 Mcg (53040 Unit) Capsule, 1,250 MCG PO WED, (Reported) Entered as Reported by: ESTER GREEN on 08/24/221401 Last Action: Held Fosfomycin Tromethamine (Fosfomycin Tromethamine) 3 Gram Packet, 1 PACKET PO Q72H, (Reported) Entered as Reported by: ESTER GREEN on 08/24/221401 Last Action: Continued Levothyroxine Sodium (Levothyroxine Sodium) 25 Mcg Tablet, 25 MCG PO DAILY, (Reported) Entered as Reported by: ESTER GREEN on 08/24/221401 Last Action: Continued Losartan Potassium (Losartan Potassium) 50 Mg Tablet, 50 MG PO DAILY, (Reported) Entered as Reported by: ESTER GREEN on 08/24/221401 Last Action: Continued Melatonin (Melatonin) 10 Mg Tablet, 10 MG PO HS, (Reported) Entered as Reported by: ESTER GREEN on 08/24/221401 Last Action: Continued Metoprolol Succinate (Metoprolol Succinate) 50 Mg Tab.er.24h, 50 MG PO BID, (Reported) Entered as Reported by: ESTER GREEN on 08/24/221401 Last Action: Continued Ondansetron (Ondansetron Odt) 4 Mg Tab.rapdis, 4 MG PO Q6H PRN for NAUSEA/VOMITING-1ST LINE, (Reported) Entered as Reported by: ESTER GREEN on 08/24/221401 Last Action: Held Pantoprazole Sodium (Pantoprazole Sodium) 40 Mg Tablet.dr, 40 MG PO DAILY Prescribed by: PROMISE COMBS on 08/25/22 [address] Stanol Elise (Cholest Off Plus) 450 Mg Capsule, 450 MG PO DAILY, (Reported) Entered as Reported by: ESTER GREEN on 08/24/221401 Last Action: Held Prednisolone Acetate/Pf (Prednisolone Acet 1% Eye Drop) 1 % Drops.susp, 1 DROP OS HS, (Reported) Entered as Reported by: ESTER GREEN on 08/24/221401 Last Action: Converted Semaglutide (Ozempic) 2 Mg/0.75 Ml (8 Mg/3 Ml) Pen.injctr, 2 MG SQ THUR, (Reported) Entered as Reported by: ESTER GREEN on 08/24/221401 Last Action: Held Sertraline HCl (Sertraline HCl) 100 Mg Tablet, 100 MG PO HS, (Reported) Entered as Reported by: ESTER GREEN on 08/24/221401 Last Action: Continued Valacyclovir HCl (Valacyclovir) 500 Mg Tablet, 500 MG PO HS, (Reported) Entered as Reported by: ESTER GREEN on 08/24/221401 Last Action: Continued Discontinued Medications Acyclovir (Zovirax Tablet) 400 Mg Tablet, 400 MG PO DAILY, (Reported) Discontinued Reason: No Longer Taking Entered as Reported by: RONAL SIMON on 11/12/13853 Last Action: Discontinued Amlodipine Besylate (Amlodipine Besylate) 5 Mg Tablet, 5 MG PO DAILY, (Reported) Discontinued Reason: No Longer Taking Entered as Reported by: RONAL SIMON on 11/12/13853 Last Action: Discontinued Amlodipine Besylate (Amlodipine Besylate) 5 Mg Tablet, 5 MG PO DAILY, (Reported) Entered as Reported by: ESTER GREEN on 08/24/221401 Last Action: Reviewed Donepezil HCl (Donepezil HCl) 5 Mg Tablet, 5 MG PO DAILY, (Reported) Discontinued Reason: No Longer Taking Entered as Reported by: SAADIA LEUNG on 04/18/21 1106 Last Action: Discontinued Meloxicam (Meloxicam) 15 Mg Tablet, 15 MG PO DAILY, (Reported) Discontinued Reason: No Longer Taking Entered as Reported by: RONAL SIMON on 11/12/13853 Last Action: Discontinued Meloxicam (Meloxicam) 15 Mg Tablet, 15 MG PO DAILY, (Reported) Entered as Reported by: ESTER GREEN on 08/24/221401 Last Action: Held Metoprolol Tartrate (Metoprolol Tartrate 50 Mg) 50 Mg Tablet, 1 EACH PO BID, (Reported) Discontinued Reason: No Longer Taking Entered as Reported by: RONAL SIMON on 11/12/13853 Last Action: Discontinued Multivitamins (Multivitamins) 1 Each Capsule, 1 EACH PO DAILY, (Reported) Discontinued Reason: No Longer Taking Entered as Reported by: RONAL SIMON on 11/12/13853 Last Action: Discontinued Quinapril Hcl (Accupril) 40 Mg Tablet, 40 MG PO DAILY, (Reported) Discontinued Reason: No Longer Taking Entered as Reported by: RONAL SIMON on 11/12/13853 Last Action: Discontinued Sertraline Hcl (Zoloft) 50 Mg Tablet, 50 MG PO DAILY, (Reported) Discontinued Reason: No Longer Taking Entered as Reported by: RONAL SIMON on 11/12/13853 Last Action: Discontinued Solifenacin Succinate (Vesicare) 5 Mg Tablet, 5 MG PO DAILY, (Reported) Discontinued Reason: No Longer Taking Entered as Reported by: RONAL SIMON on 11/12/13853 Last Action: Discontinued Review of Systems Review of Systems Constitutional: see HPI Past Loxtfqp-Ybywau-Jdvjav Hx Patient Social History Tobacco Use?: No Smoking Status: Former Smoker Use of E-Cig and/or Vaping dev: No Substance use?: No Alcohol Use?: No Pt feels they are or have been: No Immunizations Up To Date First/Initial COVID19 Vaccinat: 06/2020 Second COVID19 Vaccination Rony: 07/2020 Past Medical History Surgery/Hospitalization HX: HTN BREAST CA Surgeries: Yes (APPY, AZYCUS VEIN, CARPAL TUNNEL, LUMPECTOMY) Appendectomy, Orthopedic, Tonsillectomy Respiratory: No Cardiac: Yes (HAS HTN) High Cholesterol, Hypertension Neurological: Yes Dementia, Neuropathy Reproductive Disorders: No Genitourinary: Yes (Incontinence) UTI-Chronic Gastrointestinal: Yes Chronic Constipation Musculoskeletal: No Endocrine: Yes Hypothyroidsim HEENT: Yes (CORNEAL TRANSPLANT) Cancer: Yes Breast Did You Recieve Any Treatments: Yes What Type of Treatment Did You: Radiation, Surgical Intervention Psychosocial: No Blood Disorders: No Physical Exam Vital Signs Vital Signs - First Documented 08/24/22 09:32 Temp 37.0 Pulse 73 Resp 20 B/P (MAP) 161/79 (106) Pulse Ox 98 O2 Delivery Room Air Capillary Refill : Less Than 3 Seconds Height, Weight, BMI Height: 10'6.00" Weight: 249lbs. 0.0oz. 112.798352gl; 31.78 BMI Method: General Appearance: No Apparent Distress, WD/WN HEENT: Normal ENT Inspection, Pharynx Normal Neck: Full Range of Motion, Normal Inspection, Non Tender, Supple Respiratory: Chest Non Tender, Lungs Clear, Normal Breath Sounds, No Accessory Muscle Use, No Respiratory Distress Cardiovascular: Regular Rate, Rhythm, No Murmur, Normal Peripheral Pulses Gastrointestinal: Normal Bowel Sounds, No Organomegaly, No Pulsatile Mass, Non Tender, Soft Extremity: Normal Capillary Refill, Normal Inspection, Normal Range of Motion, Non Tender, No Calf Tenderness, No Pedal Edema Neurologic/Psychiatric: Alert, Oriented x3 Skin: Normal Color, Warm/Dry Lymphatic: No Adenopathy Progress/Results/Core Measures Results/Orders Lab Results Laboratory Tests Test 08/24/22 09:37 Range/Units White Blood Count 6.6 4.3-11.0 10^3/uL Red Blood Count 4.35 3.80-5.11 10^6/uL Hemoglobin 13.3 11.5-16.0 g/dL Hematocrit 40 35-52 % Mean Corpuscular Volume 93 80-99 fL Mean Corpuscular Hemoglobin 31 25-34 pg Mean Corpuscular Hemoglobin Concent 33 32-36 g/dL Red Cell Distribution Width 13.9 10.0-14.5 % Platelet Count 178 130-400 10^3/uL Mean Platelet Volume 9.2 9.0-12.2 fL Immature Granulocyte % (Auto) 1 % Neutrophils (%) (Auto) 69 42-75 % Lymphocytes (%) (Auto) 22 12-44 % Monocytes (%) (Auto) 6 0-12 % Eosinophils (%) (Auto) 3 0-10 % Basophils (%) (Auto) 1 0-10 % Neutrophils # (Auto) 4.6 1.8-7.8 10^3/uL Lymphocytes # (Auto) 1.4 1.0-4.0 10^3/uL Monocytes # (Auto) 0.4 0.0-1.0 10^3/uL Eosinophils # (Auto) 0.2 0.0-0.3 10^3/uL Basophils # (Auto) 0.0 0.0-0.1 10^3/uL Immature Granulocyte # (Auto) 0.0 0.0-0.1 10^3/uL D-Dimer 1.38 H 0.00-0.49 UG/ML Sodium Level 139 135-145 MMOL/L Potassium Level 4.0 3.6-5.0 MMOL/L Chloride Level 105 98-107 MMOL/L Carbon Dioxide Level 25 21-32 MMOL/L Anion Gap 9 5-14 MMOL/L Blood Urea Nitrogen 14 7-18 MG/DL Creatinine 0.92 0.60-1.30 MG/DL Estimat Glomerular Filtration Rate 63 BUN/Creatinine Ratio 15 Glucose Level 106 H 70-105 MG/DL Calcium Level 9.9 8.5-10.1 MG/DL Corrected Calcium 9.7 8.5-10.1 MG/DL Total Bilirubin 1.2 H 0.1-1.0 MG/DL Aspartate Amino Transf (AST/SGOT) 15 5-34 U/L Alanine Aminotransferase (ALT/SGPT) 16 0-55 U/L Alkaline Phosphatase 92 40-136 U/L Troponin I < 0.028 <0.028 NG/ML Total Protein 7.6 6.4-8.2 GM/DL Albumin 4.2 3.2-4.5 GM/DL My Orders Orders - FATUMAOANH DO Comprehensive Metabolic Panel (08/24/22 09:41) Troponin I Damien (08/24/22 09:41) Chest Pa/Lat (2 View) (08/24/22 09:41) Cbc With Automated Diff (08/24/22 09:41) Fibrin Degradation Products (08/24/22 09:41) Aspirin Chewable Tablet (Baby Aspirin Ch (08/24/22 09:45) Ekg Tracing (08/24/22 09:40) Ed Admission (Communication) (08/24/22 10:37) Medications Given in ED Vital Signs/I&O 08/24/22 08/24/22 09:32 11:21 Temp 37.0 Pulse 73 59 Resp 20 20 B/P (MAP) 161/79 (106) 130/46 Pulse Ox 98 99 O2 Delivery Room Air Room Air Comment Sinus rhythm at 62 bpm. Normal intervals. Right bundle branch block. Left axis deviation. Q waves prominent in the inferior leads III and aVF. Diffuse T wave inversions in the precordial leads V1 through V4. No STEMI. Departure Communication (Admissions) Patient remained hemodynamically stable. She does have T wave versions in V1 through V4 on her EKG. She also has some Q waves in her inferior leads III and aVF. Chest x-ray is negative. Troponin is normal. She is given aspirin here. Age-adjusted D-dimer is normal. She is admitted to Dr. Gordon in otherwise stable condition. I did speak with her and she accepts admission. The patient is comfortable agreeable to admission at this time. Impression Primary Impression: Chest tightness Disposition: ADMITTED INPATIENT Condition: Stable Admissions Decision to Admit Reason: Admit from ER (General) Departure-Patient Inst. Referrals: MADDY GORDON MD (PCP/Family) Primary Care Physician Scripts Pantoprazole Sodium (Pantoprazole Sodium) 40 Mg Tablet. 40 MG PO DAILY, #30 TAB Prov: PROMISE COMBS DO 08/25/22 OANH BURRIS DO Aug 24, 2022 09:52
--- NOTE | 2022-08-24 10:12 | Diagnostic Imaging Report ---
INDICATION: Chest pain PA and lateral chest obtained at 1010 a.m. COMPARISON: 11/25/17 Heart is normal in size. Mediastinal silhouette is unremarkable the lungs are clear. Calcific density over left hemithorax appears similar to the prior study. There is no acute process in the chest. IMPRESSION: No acute process in the chest. Dictated by: Dictated on workstation # [id number]
[2022-08-24 10:15] LABS: ALBUMIN 4.2 GM/DL (3.2-4.5)
[2022-08-24 10:16] LABS: CHLORIDE 105 MMOL/L (98-107); SODIUM 139 MMOL/L (135-145)
[2022-08-24 10:17] LABS: CALCIUM 9.9 MG/DL (8.5-10.1)
[2022-08-24 10:18] LABS: GLUCOSE 106 MG/DL (70-105); TOTAL PROTEIN 7.6 GM/DL (6.4-8.2)
[2022-08-24 10:19] LABS: CARBON DIOXIDE 25 MMOL/L (21-32)
[2022-08-24 10:20] LABS: BILIRUBIN,TOTAL 1.2 MG/DL (0.1-1.0)
[2022-08-24 10:21] LABS: ALKALINE PHOSPHATASE 92 U/L (40-136)
[2022-08-24 10:22] LABS: CREATININE SERUM 0.92 MG/DL (0.60-1.30); GFR ESTIMATED 63
[2022-08-24 10:23] LABS: BUN/CREATININE RATIO 15
[2022-08-24 10:25] LABS: ALANINE AMINOTRANSFERASE 16 U/L (0-55)
--- NOTE | 2022-08-24 11:20 | History & Physical ---
History of Present Illness History of Present Illness Reason for visit/HPI Sharron Gillis is an 82 y/o female who is known to me from clinic. She had been seen by the PHARMACY INTAKE TECHNICIAN in my office with pt complaining of intermittent pressure to her chest. She is very careful to not call the sensation in her chest "pain", but insists it is a pressure. This pressure escalated over the evening last night, persisted into the morning hours, and she finally presented to the ER for evaluation. She reports that she had an appt set up with a manager neonatal she has seen in the past in , but it was not until the first week of September. Date of Admission 08/24/22 Date Seen by a Provider: Aug 24, 2022 Time Seen by a Provider: 11:20 I consulted on this patient on 08/24/22 11:20 Attending Physician Maddy Gordon MD Admitting Physician Admitting Physician: Maddy Gordon MD Attending Physician: Maddy Gordon MD Consult Cha Zaman MD Allergies and Home Medications Allergies Coded Allergies: Penicillins (Verified Allergy, Unknown, rash, 08/24/22) bacitracin (Verified Allergy, Unknown, NEOSPORIN MAKES HER CHEEK SWELL, 08/24/22) cortisone (Verified Allergy, Unknown, 08/24/22) gramicidin D (Verified Allergy, Unknown, NEOSPORIN MAKES HER CHEEK SWELL, 08/24/22) neomycin (Verified Allergy, Unknown, NEOSPORIN MAKES HER CHEEK SWELL, 08/24/22) polymyxin B (Verified Allergy, Unknown, NEOSPORIN MAKES HER CHEEK SWELL, 08/24/22) Patient Home Medication List Home Medication List Reviewed: Yes Amlodipine Besylate (Amlodipine Besylate) 5 Mg Tablet, 5 MG PO DAILY, (Reported) Entered as Reported by: ESTER GREEN on 08/24/221401 Last Action: Reviewed Donepezil HCl (Donepezil HCl) 10 Mg Tablet, 10 MG PO DAILY, (Reported) Entered as Reported by: ESTER GREEN on 08/24/221401 Last Action: Continued Ergocalciferol (Vitamin D2) (Vitamin D2) 1,250 Mcg (52927 Unit) Capsule, 1,250 MCG PO WED, (Reported) Entered as Reported by: ESTER GREEN on 08/24/221401 Last Action: Held Fosfomycin Tromethamine (Fosfomycin Tromethamine) 3 Gram Packet, 1 PACKET PO Q72H, (Reported) Entered as Reported by: ESTER GREEN on 08/24/221401 Last Action: Continued Levothyroxine Sodium (Levothyroxine Sodium) 25 Mcg Tablet, 25 MCG PO DAILY, (Reported) Entered as Reported by: ESTER GREEN on 08/24/221401 Last Action: Continued Losartan Potassium (Losartan Potassium) 50 Mg Tablet, 50 MG PO DAILY, (Reported) Entered as Reported by: ESTER GREEN on 08/24/221401 Last Action: Continued Melatonin (Melatonin) 10 Mg Tablet, 10 MG PO HS, (Reported) Entered as Reported by: ESTER GREEN on 08/24/221401 Last Action: Continued Meloxicam (Meloxicam) 15 Mg Tablet, 15 MG PO DAILY, (Reported) Entered as Reported by: ESTER GREEN on 08/24/221401 Last Action: Held Metoprolol Succinate (Metoprolol Succinate) 50 Mg Tab.er.24h, 50 MG PO BID, (Reported) Entered as Reported by: ESTER GREEN on 08/24/221401 Last Action: Continued Ondansetron (Ondansetron Odt) 4 Mg Tab.rapdis, 4 MG PO Q6H PRN for NAUSEA/VOMITING-1ST LINE, (Reported) Entered as Reported by: ESTER GREEN on 08/24/221401 Last Action: Held Plant Stanol Elise (Cholest Off Plus) 450 Mg Capsule, 450 MG PO DAILY, (Reported) Entered as Reported by: ESTER GREEN on 08/24/221401 Last Action: Held Prednisolone Acetate/Pf (Prednisolone Acet 1% Eye Drop) 1 % Drops.susp, 1 DROP OS HS, (Reported) Entered as Reported by: ESTER GREEN on 08/24/221401 Last Action: Converted Semaglutide (Ozempic) 2 Mg/0.75 Ml (8 Mg/3 Ml) Pen.injctr, 2 MG SQ THUR, (Reported) Entered as Reported by: ESTER GREEN on 08/24/221401 Last Action: Held Sertraline HCl (Sertraline HCl) 100 Mg Tablet, 100 MG PO HS, (Reported) Entered as Reported by: ESTER GREEN on 08/24/221401 Last Action: Continued Valacyclovir HCl (Valacyclovir) 500 Mg Tablet, 500 MG PO HS, (Reported) Entered as Reported by: ESTER GREEN on 08/24/221401 Last Action: Continued Discontinued Medications Acyclovir (Zovirax Tablet) 400 Mg Tablet, 400 MG PO DAILY, (Reported) Discontinued Reason: No Longer Taking Entered as Reported by: RONAL SIMON on 11/12/13853 Last Action: Discontinued Amlodipine Besylate (Amlodipine Besylate) 5 Mg Tablet, 5 MG PO DAILY, (Reported) Discontinued Reason: No Longer Taking Entered as Reported by: RONAL SIMON on 11/12/13853 Last Action: Discontinued Donepezil HCl (Donepezil HCl) 5 Mg Tablet, 5 MG PO DAILY, (Reported) Discontinued Reason: No Longer Taking Entered as Reported by: SAADIA LEUNG on 04/18/21 1106 Last Action: Discontinued Meloxicam (Meloxicam) 15 Mg Tablet, 15 MG PO DAILY, (Reported) Discontinued Reason: No Longer Taking Entered as Reported by: RONAL SIMON on 11/12/13853 Last Action: Discontinued Metoprolol Tartrate (Metoprolol Tartrate 50 Mg) 50 Mg Tablet, 1 EACH PO BID, (Reported) Discontinued Reason: No Longer Taking Entered as Reported by: RONAL SIMON on 11/12/13853 Last Action: Discontinued Multivitamins (Multivitamins) 1 Each Capsule, 1 EACH PO DAILY, (Reported) Discontinued Reason: No Longer Taking Entered as Reported by: RONAL SIMON on 11/12/13853 Last Action: Discontinued Quinapril Hcl (Accupril) 40 Mg Tablet, 40 MG PO DAILY, (Reported) Discontinued Reason: No Longer Taking Entered as Reported by: RONAL SIMON on 11/12/13853 Last Action: Discontinued Sertraline Hcl (Zoloft) 50 Mg Tablet, 50 MG PO DAILY, (Reported) Discontinued Reason: No Longer Taking Entered as Reported by: RONAL SIMON on 11/12/13853 Last Action: Discontinued Solifenacin Succinate (Vesicare) 5 Mg Tablet, 5 MG PO DAILY, (Reported) Discontinued Reason: No Longer Taking Entered as Reported by: RONALSANTOSH SIMON on 11/12/13 0854 Last Action: Discontinued Past Mexrcfr-Htfbbr-Xwazlq Hx Patient Social History Marrital Status: Living Status: lives in her home alone Employed/Student: retired Tobacco Use?: No Smoking Status: Former Smoker Use of E-Cig and/or Vaping dev: No Substance use?: No Alcohol Use?: No Pt feels they are or have been: No Immunizations Up To Date First/Initial COVID19 Vaccinat: 06/2020 Second COVID19 Vaccination Rony: 07/2020 Date of Pneumonia Vaccine: Feb 17, 2007 Current Status status: No Advance Directives: No Communicates: Verbally Primary Language: Danish Preferred Spoken Language: Danish Is interpretation needed?: No Past Medical History Surgeries: Appendectomy, Orthopedic, Tonsillectomy High Cholesterol, Hypertension Dementia, Neuropathy UTI-Chronic Chronic Constipation Hypothyroidsim Breast Did You Recieve Any Treatments: Yes What Type of Treatment Did You: Radiation, Surgical Intervention Blood Disorders: No Family Medical History Reviewed Nursing Family Hx Review of Systems Constitutional: No chills, No fever, No malaise, No weakness EENTM: hearing loss; No hoarseness, No throat pain Respiratory: No cough, No dyspnea on exertion, No short of breath Cardiovascular: see HPI; No edema, No palpitations Gastrointestinal: No abdominal pain, No constipation, No diarrhea; heartburn Genitourinary: other (recurrent uti) Musculoskeletal: joint pain (arthritis pain) Psychiatric/Neurological: Denies Anxiety; Depressed; Denies Weakness All Other Systems Reviewed Negative Unless Noted: Yes Physical Exam Vital Signs Vital Signs - First Documented 08/24/22 09:32 Temp 37.0 Pulse 73 Resp 20 B/P (MAP) 161/79 (106) Pulse Ox 98 O2 Delivery Room Air Capillary Refill : Less Than 3 Seconds Height, Weight, BMI Height: 10'6.00" Weight: 249lbs. 0.0oz. 112.186912hr; 32.00 BMI Method: General Appearance: No Apparent Distress, WD/WN HEENT: PERRL/EOMI, Pharynx Normal Neck: Full Range of Motion, Supple Respiratory: Chest Non Tender, Lungs Clear, Normal Breath Sounds, No Accessory Muscle Use, No Respiratory Distress Cardiovascular: Regular Rate, Rhythm, Normal Peripheral Pulses Gastrointestinal: Normal Bowel Sounds, No Organomegaly, No Pulsatile Mass, Non Tender, Soft Rectal: Deferred Extremity: Normal Capillary Refill, Non Tender, No Calf Tenderness, No Pedal Edema Neurologic/Psychiatric: Alert, Oriented x3, No Motor/Sensory Deficits, Normal Mood/Affect Skin: Normal Color, Warm/Dry Assessment/Plan Assessment and Plan Chest pressure Chronic Hypertension Elevated DDimer Chronic Recurrent UTI Depression Hypothyroidism Hyperlipidemia Chest pressure - consult to Dr. Zaman - discussed with Dr. Zaman - pt has elevated D-Dimer - he is going to order CT angio (results negative) - He will plan - depending on her cardiac labs - the possibility of stress test versus heart cath. Chronic Hypertension - resume some of her home medications - her bp is a little low - therefore not starting all of her home medications . Chronic Recurrent UTI - pt has been on multiple different medications - with specialist recommending chronic fosfomycin as preventative treatment. Depression - resume ssri Hypothyroidism - resume levothyroxine Hyperlipidemia -pt on OTC plant sterol (does not tolerate statins) GI symptoms - pt started on PPI Admission Diagnosis Chest pressure Chronic Hypertension Elevated DDimer Chronic Recurrent UTI Depression Hypothyroidism Hyperlipidemia Admission Status: Observation MADDY GORDON MD Aug 24, 2022 11:20
[2022-08-24 12:00] VITALS: BP 130/60
[2022-08-24] MEDS ORDERED: PATIENT MAY USE OWN MEDS, ALL PO SCH (12:00)
[2022-08-24 12:16] VITALS: BP 125/68
[2022-08-24 12:30] VITALS: BP 131/76
[2022-08-24] MEDS ORDERED: PANTOPRAZOLE 40 MG (PROTONIX) TAB PO NR (12:45)
[2022-08-24] MEDS ORDERED: FAMOTIDINE 20 MG (PEPCID) TABLET PO NR (12:45)
--- NOTE | 2022-08-24 12:57 | Consultation-Cardiology ---
HPI-Cardiology Cardiology Consultation: Date of Consultation 08/24/22 Time Seen by a Provider: 12:15 Date of Admission Attending Physician Monique Gordon MD Admitting Physician Admitting Physician: Monique Gordon MD Attending Physician: Monique Gordon MD Consulting Physician MIREYA SEGURA MD, MA, FACP, FACC, FSCAI, CCDS HPI: Chief Complaint: Chest discomfort 82 yo woman with midchest and epigastric discomfort for 2 weeks, present most of the time and lasting hours. Had it all night last night and it was more intense than usual. She decided to come to the ER. The discomfort is pressure-like and generally mild, no radiation, on aggravating or relieving factors, no radiation. Also notes, mild to mod shortness of breath with exertion for the past several weeks. Has a chronic dry cough. Denies n/v/d, but notes some dyspepsia (a feeling of upset stomach) since being on [facility] fosfomycin therapy for a chronic, resistant UTI. Denies leg swelling or palp or syncope. Review of Systems-Cardiology Review of Systems Constitutional: malaise, tiredness; No weight loss, No weight gain Eyes: No vision change Ears/Nose/Throat: No ear discharge, No nasal drainage, No recent hearing loss Respiratory: As described under HPI Cardiovascular: As described under HPI Gastrointestinal: As described under HPI Genitourinary: No dysuria, No hematuria Musculoskeletal: back pain (chronic) Skin: No rash, No ulcerations Psychiatric/Neurological: No seizure, No focal weakness, No syncope Hematologic: No bleeding abnormalities GMY-Vjnvbg-Ramzga Hx Patient Social History Smoking Status: Former Smoker 2nd Hand Smoke Exposure: No Have you traveled recently?: No Alcohol Use?: No Pt feels they are or have been: No Immunizations Up To Date Date of Pneumonia Vaccine: Feb 17, 2007 Past Medical History PMH As described under Assessment. Family Medical History Family Medical History: Does not report fam h/o premature CAD Allergies and Home Medications Allergies Coded Allergies: Penicillins (Verified Allergy, Unknown, rash, 08/24/22) bacitracin (Verified Allergy, Unknown, NEOSPORIN MAKES HER CHEEK SWELL, 08/24/22) cortisone (Verified Allergy, Unknown, 08/24/22) gramicidin D (Verified Allergy, Unknown, NEOSPORIN MAKES HER CHEEK SWELL, 08/24/22) neomycin (Verified Allergy, Unknown, NEOSPORIN MAKES HER CHEEK SWELL, 08/24/22) polymyxin B (Verified Allergy, Unknown, NEOSPORIN MAKES HER CHEEK SWELL, 08/24/22) Patient Home Medication List Home Medication List Reviewed: Yes Acyclovir (Zovirax Tablet) 400 Mg Tablet, 400 MG PO DAILY, (Reported) Entered as Reported by: RONAL SIMON on 11/12/13 0854 Amlodipine Besylate (Amlodipine Besylate) 5 Mg Tablet, 5 MG PO DAILY, (Reported) Entered as Reported by: RONAL SIMON on 11/12/13 0854 Donepezil HCl (Donepezil HCl) 5 Mg Tablet, 5 MG PO DAILY, (Reported) Entered as Reported by: SAADIA LEUNG on 04/18/21 1106 Meloxicam (Meloxicam) 15 Mg Tablet, 15 MG PO DAILY, (Reported) Entered as Reported by: RONAL SIMON on 11/12/13 0854 Metoprolol Tartrate (Metoprolol Tartrate 50 Mg) 50 Mg Tablet, 1 EACH PO BID, (Reported) Entered as Reported by: RONAL SIMON on 11/12/13 0854 Multivitamins (Multivitamins) 1 Each Capsule, 1 EACH PO DAILY, (Reported) Entered as Reported by: RONAL SIMON on 11/12/13 0854 Quinapril Hcl (Accupril) 40 Mg Tablet, 40 MG PO DAILY, (Reported) Entered as Reported by: RONAL SIMON on 11/12/13 0854 Sertraline Hcl (Zoloft) 50 Mg Tablet, 50 MG PO DAILY, (Reported) Entered as Reported by: RONAL SIMON on 11/12/13 0854 Solifenacin Succinate (Vesicare) 5 Mg Tablet, 5 MG PO DAILY, (Reported) Entered as Reported by: RONAL SIMON on 11/12/13 0854 Physical Exam-Cardiology Physical Exam Vital Signs/I&O 08/24/22 08/24/22 08/24/22 09:32 11:21 12:00 Temp 37.0 36.4 Pulse 73 59 68 Resp 20 20 18 B/P (MAP) 161/79 (106) 130/46 130/60 (83) Pulse Ox 98 99 93 O2 Delivery Room Air Room Air Room Air Capillary Refill : Less Than 3 Seconds Constitutional: AAO x 3, well-developed, well-nourished HEENT: EOMI, hearing is well preserved, oral hygience is good; No xanthelasmas are seen Neck: carotid pulses are 2 + bilaterally, with good upstrokes Respiratory: No accessory muscle use; chest expansion is symmetric, chest is bilaterally symmetric, other (good, bilateral air entry) Cardiovascular: regular rate-rhythm, S1 and S2, systolic murmur (soft YAMEL at card base) Gastrointestinal: No tender; soft; No guarding, No rebound; audible bowel sounds Extremities: No swelling, No clubbing, No cyanosis Neurologic/Psychiatric: other (moves all limbs equally) Skin: No rash on exposed areas, No ulcerations on exposed areas Data Review Labs Laboratory Tests 08/24/22 09:37: White Blood Count 6.6, Red Blood Count 4.35, Hemoglobin 13.3, Hematocrit 40, Mean Corpuscular Volume 93, Mean Corpuscular Hemoglobin 31, Mean Corpuscular Hemoglobin Concent 33, Red Cell Distribution Width 13.9, Platelet Count 178, Tiffany n Platelet Volume 9.2, Immature Granulocyte % (Auto) 1, Neutrophils (%) (Auto) 69, Lymphocytes (%) (Auto) 22, Monocytes (%) (Auto) 6, Eosinophils (%) (Auto) 3, Basophils (%) (Auto) 1, Neutrophils # (Auto) 4.6, Lymphocytes # (Auto) 1.4, Monocytes # (Auto) 0.4, Eosinophils # (Auto) 0.2, Basophils # (Auto) 0.0, Immature Granulocyte # (Auto) 0.0, D-Dimer 1.38H, Sodium Level 139, Potassium Level 4.0, Chloride Level 105, Carbon Dioxide Level 25, Anion Gap 9, Blood Urea Nitrogen 14, Creatinine 0.92, Estimat Glomerular Filtration Rate 63, BUN/Creatinine Ratio 15, Glucose Level 106H, Calcium Level 9.9, Corrected Calcium 9.7, Total Bilirubin 1.2H, Aspartate Amino Transf (AST/SGOT) 15, Alanine Aminotransferase (ALT/SGPT) 16, Alkaline Phosphatase 92, Troponin I < 0.028, Total Protein 7.6, Albumin 4.2 Laboratory Tests 08/24/22 09:37 A/P-Cardiology Assessment/Admission Diagnosis Non-specific chest discomfort - no evidence of ACS, so far Hypertension Chronic UTI with h/o prolonged antibiotic treatment (including a recent one) RBBB on ECG Discussion and Recomendations * Tele * Follow troponin. If evidence of ACS, then cath. If no evidence of ACS, then MP I which can probably be done as an outpatient * PPI because of dyspepsia from prolonged antibiotic use for chronic UTI * Pulm CT angio because of shortness of breath, RBBB, and mildly elevated d- Dimer * I discussed her case in detail with Dr Gordon * I discussed her CV issues in detail with Ms. Gillis and answered her questions MIREYA SEGURA MD FACP FAC CCDS Aug 24, 2022 12:57
[2022-08-24] MEDS ORDERED: CATHETER FLUSH 10 ML SYR IV PRN (13:30)
[2022-08-24] MEDS ORDERED: HOLD METFORMIN - RECEIVED CONTRAST 20 ML VIAL IV SCH (13:30)
[2022-08-24] MEDS ORDERED: NS 100 ML (IVPB) BAG IV ONE (13:30)
[2022-08-24] MEDS ORDERED: IOHEXOL 350 MG/ML 100 ML (OMNIPAQUE 350) VIAL IV ONE (13:30)
[2022-08-24] MEDS ORDERED: MELO15TA39 PO (14:02)
[2022-08-24] MEDS ORDERED: SERT-414 PO (14:02)
[2022-08-24] MEDS ORDERED: PRED5DRO24 OS (14:02)
[2022-08-24] MEDS ORDERED: AMLO-250 PO (14:02)
[2022-08-24] MEDS ORDERED: PLAN450C PO (14:02)
[2022-08-24] MEDS ORDERED: DONE10TA41 PO (14:02)
[2022-08-24] MEDS ORDERED: SEMA2PEN SQ (14:02)
[2022-08-24] MEDS ORDERED: MELA10TA2 PO (14:02)
[2022-08-24] MEDS ORDERED: ERGO1250 PO (14:02)
[2022-08-24] MEDS ORDERED: LOSA50TA63 PO (14:02)
[2022-08-24] MEDS ORDERED: METO50TA7 PO (14:02)
[2022-08-24] MEDS ORDERED: FOSF3PAC3 PO (14:02)
[2022-08-24] MEDS ORDERED: LEVO25TA5 PO (14:02)
[2022-08-24] MEDS ORDERED: VALA500T7 PO (14:02)
[2022-08-24] MEDS ORDERED: ONDA4TAB11 PO (14:02)
--- NOTE | 2022-08-24 14:34 | Diagnostic Imaging Report ---
INDICATION: Shortness of breath. Axial imaging through chest was performed after the administration of intravenous contrast utilizing CT angiography protocol. Multiplanar, 3-D and MIP reformations were also performed. Evaluation of the pulmonary arterial system is without evidence of thromboembolism. No filling defects are seen within central, lobar or segmental branches. Thoracic aorta is normal caliber. There is no dissection. No pericardial or pleural fluid is identified. No definite pulmonary infiltrates, nodules or masses are detected. There is a large calcified mass in the left breast. Upper abdomen is unremarkable. Bony structures are nonacute. IMPRESSION: No evidence of pulmonary embolism or acute aortic disease. Dictated by: Dictated on workstation # [id number]
[2022-08-24 15:52] VITALS: BP 114/75
[2022-08-24] MEDS ORDERED: FOSFOMYCIN 3 GM PACK (MONUROL) PO SCH (18:30)
[2022-08-24 19:23] VITALS: BP 113/60
[2022-08-24] MEDS: meTOproloL SUCCINATE 50 MG (TOPROL XL) TAB PO SCH (20:09)
[2022-08-24] MEDS: FAMOTIDINE 20 MG (PEPCID) TABLET PO SCH (20:09)
[2022-08-24] MEDS: MICONAZOLE 2% POWDER (DESENEX AF) 90 GM TOP SCH (20:10)
[2022-08-24] MEDS ORDERED: VALACYCLOVIR 500 MG TAB (VALTREX) PO SCH (21:00)
[2022-08-24] MEDS ORDERED: SERTRALINE 100 MG (ZOLOFT) TAB PO SCH (21:00)
[2022-08-24] MEDS ORDERED: MELATONIN 10 MG TABLET PO SCH (21:00)
[2022-08-24] MEDS ORDERED: prednisoLONE 1% OPTH (PRED FORTE) 5 ML BTL OS SCH (21:00)
[2022-08-24 23:49] VITALS: BP 126/60
[2022-08-25 03:46] VITALS: BP 116/58
[2022-08-25 05:52] LABS: TRIGLYCERIDES 217 MG/DL (<150); VLDL CHOLESTEROL 43 MG/DL (5-40)
[2022-08-25 05:57] LABS: CHOLESTEROL 210 MG/DL (< 200)
[2022-08-25 05:58] LABS: HDL CHOLESTEROL 31 MG/DL (40-60)
[2022-08-25] MEDS ORDERED: LEVOTHYROXINE 25 MCG (LEVOTHROID) TAB PO SCH (06:30)
[2022-08-25 07:46] VITALS: BP 140/67
[2022-08-25] MEDS: MICONAZOLE 2% POWDER (DESENEX AF) 90 GM TOP SCH (08:19)
[2022-08-25] MEDS: meTOproloL SUCCINATE 50 MG (TOPROL XL) TAB PO SCH (08:19)
[2022-08-25] MEDS: FAMOTIDINE 20 MG (PEPCID) TABLET PO SCH (08:19)
[2022-08-25] MEDS ORDERED: DONEPEZIL 10 MG (ARICEPT) TAB PO SCH (09:00)
[2022-08-25] MEDS ORDERED: LOSARTAN 50 MG (COZAAR) TAB PO SCH (09:00)
[2022-08-25] MEDS ORDERED: PANTOPRAZOLE 40 MG (PROTONIX) TAB PO SCH (09:00)
--- NOTE | 2022-08-25 09:48 | Cardiology Progress Note ---
Subjective Date Seen by Provider: Aug 25, 2022 Time Seen by Provider: 09:46 Subjective/Events-last exam Patient was seen at bedside, sitting comfortably Denied any chest pain. No further episodes of chest pain reported Review of Systems General: No Chills, No Night Sweats, No Fatigue, No Malaise, No Appetite, No Other HEENT: No Head Aches, No Visual Changes, No Eye Pain, No Ear Pain, No Dysphasia, No Sinus Congestion, No Post Nasal Drip, No Sore Throat, No Other Pulmonary: No Dyspnea, No Cough, No Pleuritic Chest Pain, No Other Cardiovascular: No: Chest Pain, Palpitations, Orthopnea, Paroxysmal Noc. Dyspnea, Edema, Lt Headedness, Other Objective-Cardiology Exam Last Set of Vital Signs Vital Signs 08/25/22 08/25/22 07:46 08:43 Temp 36.2 Pulse 62 Resp 20 B/P (MAP) 140/67 (91) Pulse Ox 95 O2 Delivery Room Air I&O Intake and Output 08/25/22 00:00 Intake Total 700 ml Balance 700 ml Intake Oral 700 ml # Voids 6 Daily Weight Change No General: Alert, Oriented X3, Cooperative HEENT: Atraumatic, PERRLA Neck: Supple, No JVD, No Thyromegaly Lungs: Clear to Auscultation, Normal Air Movement Heart: Regular Rate, Normal S1, Normal S2, No Murmurs Abdomen: Normal Bowel Sounds, Soft, No Tenderness, No Hepatosplenomegaly, No Masses Extremities: No Clubbing, No Cyanosis, No Edema, Normal Pulses, No Tend erness/Swelling Skin: No Rashes, No Breakdown, No Significant Lesion Neuro: Normal Gait, Normal Speech, Strength at 5/5 X4 Ext, Normal Tone, Sensation Intact Psych/Mental Status: Mental Status NL, Mood NL Results Lab Laboratory Tests Test 08/24/22 15:45 08/25/22 05:22 Range/Units Troponin I < 0.028 <0.028 NG/ML Triglycerides Level 217 H <150 MG/DL Cholesterol Level 210 H < 200 MG/DL LDL Cholesterol Direct 144 H 1-129 MG/DL VLDL Cholesterol 43 H 5-40 MG/DL HDL Cholesterol 31 L 40-60 MG/DL A/P-Cardiology Admission Diagnosis Chest pain Hypertension Hyperlipidemia UTI Assessment/Plan Chest pain, nonspecific etiology Resembling angina EKG showed right bundle branch block, no acute ischemic changes Cardiac enzymes has been negative No further episodes of chest pain were reported. Discussed with the patient the management plan recommended stress test as an outpatient. Hypertension, controlled, monitor blood pressure Hyperlipidemia, maintained on colestipol Add Lipitor 10 mg daily and evaluate tolerance and response Chronic UTI. Managed by medical team. BMI 32, discussed weight loss DANNY MELENDEZ MD Aug 25, 2022 09:48
[2022-08-25 11:29] VITALS: BP 107/57
--- NOTE | 2022-08-25 12:47 | Progress Note ---
Subjective Date Seen by a Provider: Aug 25, 2022 Time Seen by a Provider: 12:42 Subjective/Events-last exam Fwup chest pain/angina, HTN, recurrent UTIs, hypertlipidemia. Chest pain improved--states it can come on with rest or with activity. Her repeat cardiac enzymes are normal and she just finished having her 2-D ECHO done. Objective Exam Vital Signs Date Time Temp Pulse Resp B/P (MAP) Pulse Ox O2 Delivery O2 Flow Rate FiO2 08/25/22 11:29 36.2 65 20 107/57 (74) 97 Room Air 08/25/22 08:43 Room Air 08/25/22 07:46 36.2 62 20 140/67 (91) 95 Room Air 08/25/22 07:00 70 08/25/22 03:46 36.1 65 16 116/58 (77) 97 Room Air 08/25/22 01:00 60 08/24/22 23:49 36.4 63 16 126/60 (82) 97 Room Air 08/24/22 20:58 Room Air 08/24/22 19:23 36.7 74 19 113/60 (77) 95 Room Air 08/24/22 19:00 61 08/24/22 15:52 36.6 73 17 114/75 (88) 96 Room Air 08/24/22 15:31 Room Air 08/24/22 13:26 62 I & O 08/25/22 07:00 Intake Total 900 ml Balance 900 ml Capillary Refill : Less Than 3 Seconds General Appearance: No Apparent Distress Respiratory: Lungs Clear Cardiovascular: Regular Rate, Rhythm Gastrointestinal: normal bowel sounds, soft, tenderness (mild epigastric and LLQ) Extremity: Non Tender, No Calf Tenderness, No Pedal Edema Neurologic/Psychiatric: Alert, Oriented x3 Skin: Warm/Dry Results Lab Laboratory Tests 08/24/22 15:45: Troponin I < 0.028 08/25/22 05:22: Triglycerides Level 217H, Cholesterol Level 210H, LDL Cholesterol Direct 144H, VLDL Cholesterol 43H, HDL Cholesterol 31L Assessment/Plan Assessment/Plan Assess & Plan/Chief Complaint 1. Chest Pain/Angina--RBBB on EKG, repeat cardiac enzymes negative and no signs of acute coronary syndrome, if ECHO looks okay then plan is to DC and schedule a stress test as an outpatient per cardiology note 2. Hypertension--home meds restarted 3. Recurrent UTIs--has been on chronic antibiotics, currently on Monurol 4. Epigastric Pain--protonix started and will DC on this for GI etiology PROMISE COMBS DO Aug 25, 2022 12:47
[2022-08-25] MEDS ORDERED: PANT40TA52 PO (12:52)
[2022-08-25] MEDS ORDERED: AtorvaSTATin TABLET 10 MG TABLET PO SCH (21:00)
[2022-08-26] MEDS ORDERED: FOSFOMYCIN 3 GM PACK (MONUROL) PO SCH (16:00)
== END 2022-08-25 15:08 | disposition home or self-care (01) ==
LOC: EDUNIT# 09:30 → ER 09:31 → UNDOADMOB 11:25 → 4TH 11:25 → UNDODISOB 08-25 15:08
PROVIDERS: ADMIT Family Medicine; ATTEND Family Medicine
DX: R07.89 Other chest pain (principal); I10 Essential (primary) hypertension; R79.1 Abnormal coagulation profile; N39.0 Urinary tract infection, site not specified; R10.13 Epigastric pain; E03.9 Hypothyroidism, unspecified; E78.5 Hyperlipidemia, unspecified; F32.A Depression, unspecified; Z79.890 Hormone replacement therapy; Z79.899 Other long term (current) drug therapy; Z87.891 Personal history of nicotine dependence
CPT/HCPCS: 71046; 71275; 80053; 80061; 84484; 85025; 85379; 93005; 96375; 99284; C8929; G0378; 36415; 93306

== ENCOUNTER → 2022-11-16 | Outpatient (RCR) | payer MEDICARE, OTHER ==
[2022-11-12 12:26] VITALS: BP 123/76
[2022-11-12] MEDS: ERTAPENEM 1 GM/NS 50 ML IVPB IV SCH ×2 (12:39)
[2022-11-13] MEDS: ERTAPENEM 1 GM/NS 50 ML IVPB IV SCH ×2 (12:58)
[2022-11-13 13:01] VITALS: BP 105/60
[2022-11-14] MEDS: ERTAPENEM 1 GM/NS 50 ML IVPB IV SCH ×2 (13:04)
[2022-11-14 13:35] VITALS: BP 103/57
[2022-11-15] MEDS: ERTAPENEM 1 GM/NS 50 ML IVPB IV SCH ×2 (13:05)
[2022-11-15 13:30] VITALS: BP 116/49
[~2022-11-16] VITALS: Ht 167 cm; Wt 88.6 kg
[~2022-11-16] MED LIST changes: +AMLO-250 PO; +DONE10TA41 PO; +ERGO1250 PO; +FOSF3PAC3 PO; +LEVO25TA5 PO; +LOSA50TA63 PO; +MELA10TA2 PO; +MELO15TA39 PO; +METO50TA7 PO; +ONDA4TAB11 PO; +PANT40TA52 PO; +PLAN450C PO; +PRED5DRO24 OS; +SEMA2PEN SQ; +SERT-414 PO; +VALA500T7 PO
[2022-11-16] MEDS: ERTAPENEM 1 GM/NS 50 ML IVPB IV SCH ×2 (11:07)
[2022-11-16 11:30] VITALS: BP 119/66
== END | disposition still patient (30) ==
LOC: SDC 11-12 11:32
PROVIDERS: ATTEND Physician Assistant
DX: N30.90 Cystitis, unspecified without hematuria (principal)
CPT/HCPCS: 36410; 76937; 96365; C1751

== ENCOUNTER 2022-11-18 08:17 | Outpatient (RCR) | payer MEDICARE, OTHER ==
[2022-11-17] MEDS: ERTAPENEM 1 GM/NS 50 ML IVPB IV SCH ×2 (09:10)
[2022-11-17 09:20] VITALS: BP 138/82
[~2022-11-18] VITALS: Wt 88.6 kg
[2022-11-18 08:25] VITALS: BP 138/82
[2022-11-18] MEDS: ERTAPENEM 1 GM/NS 50 ML IVPB IV SCH ×2 (09:01)
== END 2022-12-17 | disposition home or self-care (01) ==
LOC: SDC 08:17
PROVIDERS: ATTEND Physician Assistant
DX: N30.00 Acute cystitis without hematuria (principal)
CPT/HCPCS: 96365

== ENCOUNTER 2023-01-15 09:40 | Outpatient (RCR) | payer MEDICARE, OTHER ==
[2023-01-08 13:05] VITALS: BP 135/71
[2023-01-08] MEDS: ERTAPENEM 1 GM/NS 50 ML IVPB IV SCH ×2 (14:10)
[2023-01-09] MEDS: ERTAPENEM 1 GM/NS 50 ML IVPB IV SCH ×2 (11:25)
[2023-01-09 11:36] VITALS: BP 125/62
[2023-01-10] MEDS: ERTAPENEM 1 GM/NS 50 ML IVPB IV SCH ×2 (13:31)
[2023-01-10 14:00] VITALS: BP 115/57
[2023-01-11] MEDS: ERTAPENEM 1 GM/NS 50 ML IVPB IV SCH ×2 (13:15)
[2023-01-11 13:45] VITALS: BP 115/54
[2023-01-12 13:15] VITALS: BP 139/65
[2023-01-12 13:25] VITALS: BP 139/65
[2023-01-12] MEDS: ERTAPENEM 1 GM/NS 50 ML IVPB IV SCH ×2 (14:05)
[2023-01-12 14:46] VITALS: BP 139/65
[2023-01-13 12:04] VITALS: BP 118/57
[2023-01-13] MEDS: ERTAPENEM 1 GM/NS 50 ML IVPB IV SCH ×2 (12:16)
[2023-01-13 12:40] VITALS: BP 118/57
[~2023-01-15] VITALS: Ht 167 cm; Wt 89.0 kg
[2023-01-15 09:30] VITALS: BP 118/56
[2023-01-15] MEDS ORDERED: ERTAPENEM 1 GM/NS 50 ML IVPB IM SCH ×2 (10:15)
[2023-01-15] MEDS ORDERED: ERTAPENEM 1 GM/NS 50 ML IVPB IV SCH ×2 (10:15)
[2023-01-15] MEDS ORDERED: LIDOCAINE 1% INJ 20 ML VIAL ONE (10:22)
[2023-01-15] MEDS ORDERED: ERTAPENEM 1000 MG IM ONE (10:30)
[2023-01-15] MEDS ORDERED: LIDOCAINE 1% INJ 10 ML VIAL INJ ONE (10:30)
== END 2023-01-17 | disposition still patient (30) ==
LOC: SDC 09:40
PROVIDERS: ATTEND Physician Assistant
DX: N30.01 Acute cystitis with hematuria (principal)
CPT/HCPCS: 36410; 76937; 96365; C1751; 96372

== ENCOUNTER 2023-01-30 10:54 | Outpatient (RCR) | payer MEDICARE, OTHER ==
[2023-01-24 17:10] VITALS: BP 148/82
[2023-01-24] MEDS: ERTAPENEM 1000 MG IM SCH (17:18)
[2023-01-24] MEDS: LIDOCAINE 1% INJ 20 ML VIAL INJ SCH (17:18)
[2023-01-25 10:00] VITALS: BP 106/63
[2023-01-25] MEDS: LIDOCAINE 1% INJ 20 ML VIAL INJ SCH (10:16)
[2023-01-25] MEDS: ERTAPENEM 1000 MG IM SCH (10:16)
[2023-01-26] MEDS: LIDOCAINE 1% INJ 20 ML VIAL INJ SCH (10:31)
[2023-01-26] MEDS: ERTAPENEM 1000 MG IM SCH (10:32)
[2023-01-26 13:12] VITALS: BP 112/50
[2023-01-27] MEDS: ERTAPENEM 1000 MG IM SCH (11:00)
[2023-01-27] MEDS: LIDOCAINE 1% INJ 20 ML VIAL INJ SCH (11:00)
[2023-01-27 11:07] VITALS: BP 115/54
[2023-01-28 10:40] VITALS: BP 96/54
[2023-01-28] MEDS: ERTAPENEM 1000 MG IM SCH (10:40)
[2023-01-28] MEDS: LIDOCAINE 1% INJ 20 ML VIAL INJ SCH (10:41)
[2023-01-29 10:55] VITALS: BP 98/59
[2023-01-29] MEDS: LIDOCAINE 1% INJ 20 ML VIAL INJ SCH (10:55)
[2023-01-29] MEDS: ERTAPENEM 1000 MG IM SCH (10:55)
[~2023-01-30] VITALS: Ht 167.7 cm; Wt 89.0 kg
[2023-01-30] MEDS: LIDOCAINE 1% INJ 20 ML VIAL INJ SCH (11:01)
[2023-01-30] MEDS: ERTAPENEM 1000 MG IM SCH (11:01)
[2023-01-30 11:12] VITALS: BP 98/59
== END 2023-02-16 | disposition home or self-care (01) ==
LOC: SDC 10:54
PROVIDERS: ATTEND Physician Assistant
DX: N39.0 Urinary tract infection, site not specified (principal)
CPT/HCPCS: 90471; 96365; 96372